=== PATIENT | female | born 1985 | race Caucasian/White ===

== ENCOUNTER 2017-07-27 14:06 | Emergency (ER) | payer SELFPAY ==
[2017-07-27 16:12] LABS: ABS Basophils 0 10^3/ul (0-0.2); ABS Eosinophils 0 10^3/ul (0-0.6); ABS Lymphocytes 0.8 10^3/ul (1.0-4.8); ABS Monocytes 0.7 10^3/ul (0-0.8); ABS Neutrophils 10.1 10^3/ul (1.5-7.7); ABS Nucleated RBC 0 10^3/ul; Eosinophil % 0.2 % (0-6); Hematocrit 37 % (35-47); Hemoglobin 12.3 g/dl (12.0-16.0); Lymphocyte % 7.2 % (25-47); Mean Corpuscular HGB Conc 34 g/dl (31-36); Mean Corpuscular Hemoglobin 28 pg (27-31); Mean Corpuscular Volume 82 fL (80-97); Mean Platelet Volume 9 um3 (7.4-10.4); Nucleated Red Blood Cells % 0; Platelet Count 160 10^3/ul (150-450); Red Blood Count 4.47 10^6/ul (4.0-5.4); Red Cell Distribution Width 15 % (10.5-15); White Blood Count 11.6 10^3/ul (3.5-10.8)
[2017-07-27 16:22] LABS: EGFR Non-African American 116.6 (>60)
[2017-07-27] MEDS ORDERED: Iohexol 300* (CONTRAST) 10 ML SDV IV ONE (16:45)
[2017-07-27] MEDS ORDERED: Ibuprofen TAB* 600 MG PO ONE (19:42)
--- NOTE | 2017-07-27 19:55 | RAD ---
INDICATION: Dorsal wrist pain, bony erosion, osteomyelitis. COMPARISON: Comparison is made with a prior x-ray study of the left hand from June 08, 2016. TECHNIQUE: Contiguous axial sections were obtained of the left wrist. Images were reconstructed in the sagittal and coronal planes. The fingers are flexed limiting the study. FINDINGS: The bones are in normal alignment. No fracture is seen. No bony erosion or periosteal reaction is seen. No fluid collection or abscess is seen. There is a small calcification measuring approximately 1 mm posterior to the lunate bone likely incidental. IMPRESSION: NO RADIOGRAPHIC EVIDENCE FOR OSTEOMYELITIS. IF THERE IS A HIGH CLINICAL SUSPICION FOR OSTEOMYELITIS CONSIDER AN MRI OF THE WRIST WITHOUT CONTRAST.
[2017-07-27] MEDS ORDERED: Potassium Chlor TAB* 20 MEQ TAB.ER PO ONE (19:57)
--- NOTE | 2017-07-27 20:03 | ED ---
Sim Danielson Natalie, scribed for Ubaldo Hylton MD on 07/27/17 at 1546 . Upper Extremity Pain - HPI Summary HPI Summary: The pt is a 31 y/o F presenting to the ED c/o left wrist pain and swelling starting two days ago and worsening since. She hasnt fallen on the arm recently , but fell on it once with no injury. The pain is rated 9/10. The pain is aggravated by movement and is alleviated by nothing. Pt additionally c/o left leg pain and decreased ability to move left fingers and wrist. Pt denies fever, nausea, vomiting, and pain in elbow. She has ganglion cyst on left wrist that hasnt given her issues in the past, but has gotten larger. She is right- handed. She smokes 1 pack of cigarettes a day, and she last used heroin more than two days ago. - History of Current Complaint Chief Complaint: EDExtremityUpper Stated Complaint: WRIST/KNEE SWOLLEN PAIN Hx Obtained From: Patient Hx Last Menstrual Period: 1 week Onset/Duration: Started Days Ago - two days ago, Still Present Timing: Constant Severity Initially: Severe Severity Currently: Severe Pain Location: Wrist - left Aggravating Factor(s): Movement Alleviating Factor(s): Nothing Associated Signs & Symptoms: Positive: Swelling, Other - left leg pain, decreased ability to move fingers in L wrist, no pain in elbow. Negative: Fever , Nausea, Vomiting Related History: Dominant Hand Right - Allergies/Home Medications Allergies/Adverse Reactions: Allergies Allergy/AdvReac Type Severity Reaction Status Date / Time Penicillins Allergy Intermediate Hives Verified 07/27/17 14:16 PMH/Surg Hx/FS Hx/Imm Hx Previously Healthy: No Endocrine/Hematology History: Denies: Hx Diabetes, Hx Thyroid Disease Cardiovascular History: Denies: Hx Hypertension Respiratory History: Denies: Hx Asthma, Hx Chronic Obstructive Pulmonary Disease (COPD) GI History: Denies: Hx Ulcer History: Denies: Hx Dialysis, Hx Renal Disease - Surgical History Surgery Procedure, Year, and Place: csection Infectious Disease History: No Infectious Disease History: Denies: Hx Clostridium Difficile, Hx Hepatitis, Hx Human Immunodeficiency Virus (HIV), Hx of Known/Suspected MRSA, Hx Shingles, Hx Tuberculosis, Hx Known/ Suspected VRE, Hx Known/Suspected VRSA, History Other Infectious Disease, Traveled Outside the [place] in Last 30 Days - Family History Known Family History: Positive: Cardiac Disease Negative: Diabetes - Social History Alcohol Use: Occasionally Hx Substance Use: Yes Substance Use Type: Reports: Heroin Substance Use Comment - Amount & Last Used: last used yesterday Hx Tobacco Use: Yes Smoking Status (MU): Heavy Every Day Tobacco Smoker Type: Cigarettes Amount Used/How Often: 1/2 ppd Review of Systems Negative: Fever Negative: Vomiting, Nausea Positive: Other - decreased movement in left fingers and wrist, left leg pain, no pain in elbow All Other Systems Reviewed And Are Negative: Yes Physical Exam - Summary Physical Exam Summary: Appearance: Well-nourished, Mild pain distress Skin: Warm, dry, Multiple round discolorations on surfaces of both arms, No erythema in extremities Eyes: Normal, Extraocular movements intact, PERRL HENT: Normal, Normal cephalic, atraumatic, Moist mucous membranes Neck: Supple, nontender Respiratory: Clear to auscultation, Normal respirations Cardiovascular: Normal, S1 and S2, No murmurs Abdomen: Soft, nontender, no distension Bowel: Present Musculoskeletal: Normal, Strength/ROM Intact Neurological: Normal, A&Ox3 Psychiatric: Normal Triage Information Reviewed: Yes Vital Signs On Initial Exam: Initial Vitals Temp Pulse Resp BP Pulse Ox 97.8 F 87 16 103/62 97 07/27/17 14:13 07/27/17 14:13 07/27/17 14:13 07/27/17 14:13 07/27/17 14:13 Vital Signs Reviewed: Yes Diagnostics - Vital Signs Vital Signs Temp Pulse Resp BP Pulse Ox 07/27/17 14:13 97.8 F 87 16 103/62 97 - Laboratory Lab Results: Lab Results 07/27/17 07/27/17 Range/Units 15:55 15:55 WBC 11.6 H (3.5-10.8) 10^3/ul RBC 4.47 (4.0-5.4) 10^6/ul Hgb 12.3 (12.0-16.0) g/dl Hct 37 (35-47) % MCV 82 (80-97) fL MCH 28 (27-31) pg MCHC 34 (31-36) g/dl RDW 15 (10.5-15) % Plt Count 160 (150-450) 10^3/ul MPV 9 (7.4-10.4) um3 Neut % (Auto) 86.5 H (38-83) % Lymph % (Auto) 7.2 L (25-47) % [place] % (Auto) 5.8 (1-9) % Eos % (Auto) 0.2 (0-6) % Baso % (Auto) 0.3 (0-2) % Absolute Neuts (auto) 10.1 H (1.5-7.7) 10^3/ul Absolute Lymphs (auto) 0.8 L (1.0-4.8) 10^3/ul Absolute Monos (auto) 0.7 (0-0.8) 10^3/ul Absolute Eos (auto) 0 (0-0.6) 10^3/ul Absolute Basos (auto) 0 (0-0.2) 10^3/ul Absolute Nucleated RBC 0 10^3/ul Nucleated RBC % 0 ESR 50 H (0-14) mm/Hr Sodium 129 L (133-145) mmol/L Potassium 3.0 L (3.5-5.0) mmol/L Chloride 96 L (101-111) mmol/L Carbon Dioxide 26 (22-32) mmol/L Anion Gap 7 (2-11) mmol/L BUN 9 (6-24) mg/dL Creatinine 0.60 (0.51-0.95) mg/dL Est GFR ( Amer) 150.0 (>60) Est GFR (Non-Af Amer) 116.6 (>60) BUN/Creatinine Ratio 15.0 (8-20) Glucose 125 H (70-100) mg/dL Calcium 8.6 (8.6-10.3) mg/dL C-Reactive Protein 266.65 H (< 5.00) mg/L Beta HCG, Quant < 0.60 mIU/mL Result Diagrams: 07/27/17 15:55 07/27/17 15:55 Lab Statement: Any lab studies that have been ordered have been reviewed, and results considered in the medical decision making process. Course/Dx - Course Assessment/Plan: feels better after meds, no evidence of osteomyelitis on CT, pt instructed to continue anti inflammatories and discontinue IV drug use and fu with PMD and orthopedist. agrees to and understnads dc isntructions. - Diagnoses Provider Diagnoses: Ganglion cyst Discharge - Discharge Plan Condition: Improved Disposition: HOME Patient Education Materials: Ganglion Cysts (ED) Referrals: Haja Hou MD [Primary Care Provider] - Roberto Carlos Hodgson MD [Medical Doctor] - Additional Instructions: PLEASE MAKE AN APPOINTMENT WITH TO BE SEEN BY AN ORTHOPEDIST WITHIN 1-2 WEEKS PLEASE RETURN IMMEDIATELY TO THE ER IF YOU HAVE ANY WORSENING OR CONCERNING SYMPTOMS PLEASE MAKE AN APPOINTMENT TO BE SEEN BY YOUR PRIMARY CARE DOCTOR WITHIN 1 WEEK The documentation as recorded by the Sim arriaza Natalie accurately reflects the service I personally performed and the decisions made by me, Ubaldo Hylton MD.
[2017-07-27 20:14] VITALS: BP 110/91
== END 2017-07-27 20:26 | disposition home or self-care (01) ==
LOC: ED 14:06
DX: M67.432 Ganglion, left wrist (principal); M25.532 Pain in left wrist
CPT/HCPCS: 36415; 80048; 84702; 85025; 85652; 86140; 99284; A9270-GY

== ENCOUNTER 2017-07-29 21:01 | Inpatient (IN) | payer SELFPAY ==
[2017-07-30] MEDS ORDERED: NS 0.9% 1000 ML*IV.FLUID IV ONE (00:04)
[2017-07-30] MEDS ORDERED: metroNIDAZOLE IV 500 MG/100ML* 500 MG/100 ML BAG IVPB ONE (00:04)
[2017-07-30] MEDS ORDERED: Ciprofloxacin 400MG IVPREMIX(* 400 MG/200 ML BAG IVPB ONE (00:04)
[2017-07-30] MEDS ORDERED: Vancomycin(*) 1,000 MG VIAL IVPB SCH (01:00)
[2017-07-30 01:55] LABS: Hematocrit 37 % (35-47); Hemoglobin 12.3 g/dl (12.0-16.0); Mean Corpuscular HGB Conc 33 g/dl (31-36); Mean Corpuscular Hemoglobin 28 pg (27-31); Mean Corpuscular Volume 83 fL (80-97); Mean Platelet Volume 9 um3 (7.4-10.4); Platelet Count 234 10^3/ul (150-450); Red Blood Count 4.46 10^6/ul (4.0-5.4); Red Cell Distribution Width 15 % (10.5-15); White Blood Count 15.4 10^3/ul (3.5-10.8)
[2017-07-30 02:07] LABS: EGFR Non-African American 123.7 (>60)
[2017-07-30 02:09] LABS: INR 1.21 (0.77-1.02)
[2017-07-30 02:23] LABS: ABS Basophils 0 10^3/ul (0-0.2); ABS Eosinophils 0 10^3/ul (0-0.6); ABS Lymphocytes 0.9 10^3/ul (1.0-4.8); ABS Neutrophils 13.4 10^3/ul (1.5-7.7); ABS Nucleated RBC 0 10^3/ul; Eosinophil % 0 % (0-6); Lymphocyte % 5.9 % (25-47); Nucleated Red Blood Cells % 0
[2017-07-30] MEDS ORDERED: Acetaminophen TAB* 325 MG PO ONE (02:52)
[2017-07-30] MEDS ORDERED: Ketorolac INJ* 30 MG/ML 1 ML VIAL IV ONE (02:52)
[2017-07-30] MEDS ORDERED: Cefepime(*) 2 GM in NS 0.9% 50 ML* 50 ML IVPB ONE (05:30)
[2017-07-30] MEDS ORDERED: Albuterol 2.5 MG/3 ML NEB.SOL* (0.083%) INH PRN (05:39)
[2017-07-30] MEDS ORDERED: Acetaminophen SUPP* 650 MG SUPP PR PRN (05:39)
[2017-07-30] MEDS ORDERED: Ondansetron INJ* 2 MG/ML VIAL IV PRN (05:40)
[2017-07-30] MEDS ORDERED: NS 0.9% 1000 ML* 1,000 ML IV SCH ×2 (05:45→13:40)
[2017-07-30] MEDS ORDERED: Vancomycin per Pharmacy* NOTE FOLLOW UP SCH (06:00)
--- NOTE | 2017-07-30 06:45 | HP ---
H&P (Free Text) History and Physical: PCP: none Date/Time: 07/30/2017 0530 CC: vision loss HPI: Mrs Flores is a 31YO female who upon my evaluation is notably encephalopathic. It took 30-45s for her to be able to say she has no brothers or sisters, but then moments later when asked where she lives stated, "with my sister". She has difficulty following requests nearly always requiring repeated requests. She has a HX active heroine abuse with last use reportedly 4 days agoe. She c/o loss of central vision and blurring of peripheral vision ~2 days ago along with severe headache. She denies history of headaches. When asked if anything else was wrong, denies. However with pointed questioning admits to F/C , sweats, painful lesions on feet. She denies chest pain, SOB, difficulty swallowing, focal weakness, or other issues. Last bowel movement ~1 day ago, normal. Denies B/U/F of urine. PMedHx heroine abuse, active Ambulatory Orders Nursing to reconcile. Ibuprofen TAB* [Motrin TAB* 600 MG] 800 mg PO 07/25/12 Cyclobenzaprine TAB* [Flexeril 10 MG TAB*] 10 mg PO TID #15 tab 06/08/16 Ibuprofen TAB* [Motrin TAB* 600 MG] 600 mg PO Q8H PRN #21 tab 06/08/16 Nitrofurantoin Monohyd Macro [Macrobid] 100 mg PO BID #14 cap 06/11/16 Allergies Penicillins Allergy (Intermediate, Verified 07/27/17 14:16) Hives PSurgHx section x1 SocHx: 1PPD cigarettes, rare alcohol, last heroine injection 4 days ago, marijuana 2-4x/week; reportedly lives with her sister; full code status FamHx: Mother: at 60 2nd pneumonia w/ esophageal CA; Father: alive in his 60s w/ "heart problems" ROS: as above, otherwise reviewed and all were negative vitals: Vital Signs Temp 36.3 C 07/30/17 06:37 Pulse 77 07/30/17 06:37 Resp 16 07/30/17 06:37 BP 105/65 07/30/17 06:30 Pulse Ox 99 07/30/17 06:37 Intake & Output 07/29/17 07/29/17 07/30/17 11:59 23:59 11:59 Intake Total 2550 Balance 2550 Weight 81.647 kg 81.7 kg Intake: IV Fluids 2550 Constitutional: NAD, normally developed, overweight white female HEENM: atraumatic; sclera/conjunctiva: anicteric/clear; fundi: difficult to visualize 2nd compliance but no lesion seen; hearing: clinically appears intact ; dentition: poor; oropharynx: clear, mucosa tacky Neck: soft tissue: no nuchal rigidity; thyroid: normal Pulmonary: clear to auscultation bilaterally, good aeration, no accessory muscle use CV: RR/RR, normal S1S2, 2/6 ejection murmur, no jugular venous distention, 1+ B DP/PT, R>L pedal edema Abdominal: soft, non-distended, non-tender, no rebound/guarding/rigidity, normoactive bowel sounds, no hepatosplenomegaly or masses, no costovertebral angle tenderness Musculoskeletal: general: grossly intact; gait: too ill to attempt ambulation Integumental: multiple tender ecchymotic nodules B feet consistent w/ septic emboli, numerous track salgado BUE Neurological cranial nerves II: visual newsome: R infero-lateral quadrant defect, otherwise appears intact III/IV/: light reflex intact with focus but periodically manifests disconjugate gaze, EOMI, R pupil 3-4mm reactive, L 2-3mm reactive VII: intact facial symmetry VIII: hearing clinically intact IX/X: symmetric palatal motion, intact gag reflex, no dysarthria XII: midline tongue protrusion, normal voice articulation motor: R handed LUE: 4/5 proximally, distally, & special education paraeducator strength RUE: 4/5 proximally, distally, & special education paraeducator strength LLE: 4/5 proximally & distally RLE: 4/5 proximally & distally coordination finger/nose: unable to comprehend request heal/goldstein: unable to comprehend request dysdiadochokinesia: unable to comprehend request sensory crude touch: intact globally DTRs biceps: 2+ B triceps: 2+ B brachioradialis: 2+ B patellar: 2+ B Achilles: 1+ B Babinski: unable to accurately perform 2nd painful septic emboli Psychiatric orientation: AA&O to PP, not TS affect: confused mood: acquiescent eye contact: poor content: unreliable memory: altered responses: markedly slowed insight: poor Testing: Lab Results 07/30/17 07/30/17 07/30/17 Range/Units 01:40 01:40 01:40 WBC (3.5-10.8) 10^3/ul RBC (4.0-5.4) 10^6/ul Hgb (12.0-16.0) g/dl Hct (35-47) % MCV (80-97) fL MCH (27-31) pg MCHC (31-36) g/dl RDW (10.5-15) % Plt Count (150-450) 10^3/ul MPV (7.4-10.4) um3 Neut % (Auto) (38-83) % Lymph % (Auto) (25-47) % [place] % (Auto) (1-9) % Eos % (Auto) (0-6) % Baso % (Auto) (0-2) % Absolute Neuts (auto) (1.5-7.7) 10^3/ul Absolute Lymphs (auto) (1.0-4.8) 10^3/ul Absolute Monos (auto) (0-0.8) 10^3/ul Absolute Eos (auto) (0-0.6) 10^3/ul Absolute Basos (auto) (0-0.2) 10^3/ul Absolute Nucleated RBC 10^3/ul Nucleated RBC % INR (Anticoag Therapy) 1.21 H (0.77-1.02) APTT 27.7 (26.0-36.3) seconds Sodium 125 L (133-145) mmol/L Potassium 3.2 L (3.5-5.0) mmol/L Chloride 90 L (101-111) mmol/L Carbon Dioxide 25 (22-32) mmol/L Anion Gap 10 (2-11) mmol/L BUN 6 (6-24) mg/dL Creatinine 0.57 (0.51-0.95) mg/dL Est GFR ( Amer) 159.1 (>60) Est GFR (Non-Af Amer) 123.7 (>60) BUN/Creatinine Ratio 10.5 (8-20) Glucose 104 H (70-100) mg/dL Lactic Acid (0.5-2.0) mmol/L Calcium 8.8 (8.6-10.3) mg/dL Total Bilirubin 1.30 H (0.2-1.0) mg/dL AST 18 (13-39) U/L ALT 17 (7-52) U/L Alkaline Phosphatase 120 H (34-104) U/L Troponin I 0.04 H* (<0.04) ng/mL C-Reactive Protein 305.22 H (< 5.00) mg/L Total Protein 7.1 (6.4-8.9) g/dL Albumin 3.2 (3.2-5.2) g/dL Globulin 3.9 (2-4) g/dL Albumin/Globulin Ratio 0.8 L (1-3) Procalcitonin (<0.6) ng/mL Urine Color Urine Appearance Urine pH (5-9) Ur Specific [place] (1.010-1.030) Urine Protein (Negative) Urine Ketones (Negative) Urine Blood (Negative) Urine Nitrate (Negative) Urine Bilirubin (Negative) Urine Urobilinogen (Negative) Ur Leukocyte Esterase (Negative) Urine WBC (Auto) (Absent) Urine RBC (Auto) (Absent) Urine Bacteria (Absent) Urine Glucose (Negative) Salicylates < 2.50 (<30) mg/dL Acetaminophen < 15 mcg/mL Serum Alcohol < 10 (<10) mg/dL Influenza A (Rapid) (Negative) Influenza B (Rapid) (Negative) 07/30/17 07/30/17 07/30/17 Range/Units 01:40 01:40 01:40 WBC 15.4 H (3.5-10.8) 10^3/ul RBC 4.46 (4.0-5.4) 10^6/ul Hgb 12.3 (12.0-16.0) g/dl Hct 37 (35-47) % MCV 83 (80-97) fL MCH 28 (27-31) pg MCHC 33 (31-36) g/dl RDW 15 (10.5-15) % Plt Count 234 (150-450) 10^3/ul MPV 9 (7.4-10.4) um3 Neut % (Auto) 87.0 H (38-83) % Lymph % (Auto) 5.9 L (25-47) % [place] % (Auto) 6.8 (1-9) % Eos % (Auto) 0 (0-6) % Baso % (Auto) 0.3 (0-2) % Absolute Neuts (auto) 13.4 H (1.5-7.7) 10^3/ul Absolute Lymphs (auto) 0.9 L (1.0-4.8) 10^3/ul Absolute Monos (auto) 1.0 H (0-0.8) 10^3/ul Absolute Eos (auto) 0 (0-0.6) 10^3/ul Absolute Basos (auto) 0 (0-0.2) 10^3/ul Absolute Nucleated RBC 0 10^3/ul Nucleated RBC % 0 INR (Anticoag Therapy) (0.77-1.02) APTT (26.0-36.3) seconds Sodium (133-145) mmol/L Potassium (3.5-5.0) mmol/L Chloride (101-111) mmol/L Carbon Dioxide (22-32) mmol/L Anion Gap (2-11) mmol/L BUN (6-24) mg/dL Creatinine (0.51-0.95) mg/dL Est GFR ( Amer) (>60) Est GFR (Non-Af Amer) (>60) BUN/Creatinine Ratio (8-20) Glucose (70-100) mg/dL Lactic Acid 1.0 (0.5-2.0) mmol/L Calcium (8.6-10.3) mg/dL Total Bilirubin (0.2-1.0) mg/dL AST (13-39) U/L ALT (7-52) U/L Alkaline Phosphatase (34-104) U/L Troponin I (<0.04) ng/mL C-Reactive Protein (< 5.00) mg/L Total Protein (6.4-8.9) g/dL Albumin (3.2-5.2) g/dL Globulin (2-4) g/dL Albumin/Globulin Ratio (1-3) Procalcitonin 0.9 H (<0.6) ng/mL Urine Color Urine Appearance Urine pH (5-9) Ur Specific [place] (1.010-1.030) Urine Protein (Negative) Urine Ketones (Negative) Urine Blood (Negative) Urine Nitrate (Negative) Urine Bilirubin (Negative) Urine Urobilinogen (Negative) Ur Leukocyte Esterase (Negative) Urine WBC (Auto) (Absent) Urine RBC (Auto) (Absent) Urine Bacteria (Absent) Urine Glucose (Negative) Salicylates (<30) mg/dL Acetaminophen mcg/mL Serum Alcohol (<10) mg/dL Influenza A (Rapid) (Negative) Influenza B (Rapid) (Negative) 07/30/17 07/30/17 Range/Units 02:34 06:17 WBC (3.5-10.8) 10^3/ul RBC (4.0-5.4) 10^6/ul Hgb (12.0-16.0) g/dl Hct (35-47) % MCV (80-97) fL MCH (27-31) pg MCHC (31-36) g/dl RDW (10.5-15) % Plt Count (150-450) 10^3/ul MPV (7.4-10.4) um3 Neut % (Auto) (38-83) % Lymph % (Auto) (25-47) % [place] % (Auto) (1-9) % Eos % (Auto) (0-6) % Baso % (Auto) (0-2) % Absolute Neuts (auto) (1.5-7.7) 10^3/ul Absolute Lymphs (auto) (1.0-4.8) 10^3/ul Absolute Monos (auto) (0-0.8) 10^3/ul Absolute Eos (auto) (0-0.6) 10^3/ul Absolute Basos (auto) (0-0.2) 10^3/ul Absolute Nucleated RBC 10^3/ul Nucleated RBC % INR (Anticoag Therapy) (0.77-1.02) APTT (26.0-36.3) seconds Sodium (133-145) mmol/L Potassium (3.5-5.0) mmol/L Chloride (101-111) mmol/L Carbon Dioxide (22-32) mmol/L Anion Gap (2-11) mmol/L BUN (6-24) mg/dL Creatinine (0.51-0.95) mg/dL Est GFR ( Amer) (>60) Est GFR (Non-Af Amer) (>60) BUN/Creatinine Ratio (8-20) Glucose (70-100) mg/dL Lactic Acid (0.5-2.0) mmol/L Calcium (8.6-10.3) mg/dL Total Bilirubin (0.2-1.0) mg/dL AST (13-39) U/L ALT (7-52) U/L Alkaline Phosphatase (34-104) U/L Troponin I (<0.04) ng/mL C-Reactive Protein (< 5.00) mg/L Total Protein (6.4-8.9) g/dL Albumin (3.2-5.2) g/dL Globulin (2-4) g/dL Albumin/Globulin Ratio (1-3) Procalcitonin (<0.6) ng/mL Urine Color Yellow Urine Appearance Clear Urine pH 6.0 (5-9) Ur Specific [place] 1.004 L (1.010-1.030) Urine Protein Negative (Negative) Urine Ketones 1+ H (Negative) Urine Blood 2+ H (Negative) Urine Nitrate Negative (Negative) Urine Bilirubin Negative (Negative) Urine Urobilinogen Negative (Negative) Ur Leukocyte Esterase 1+ H (Negative) Urine WBC (Auto) Trace(0-5/hpf) (Absent) Urine RBC (Auto) 1+(3-5/hpf) H (Absent) Urine Bacteria Absent (Absent) Urine Glucose Negative (Negative) Salicylates (<30) mg/dL Acetaminophen mcg/mL Serum Alcohol (<10) mg/dL Influenza A (Rapid) Negative (Negative) Influenza B (Rapid) Negative (Negative) ECG, personally reviewed: sinus tachycardia rate 102, no ischemia CXR, personally reviewed: no acute process CT brain WO, personally reviewed: Shayy read: negative brain; However to my eye there are multiple lesions suspicious of septic emboli in this clinical context, most prominent lesion on standard image 22 of 32 high occipital. Impression: 31F active heroine abuse presenting with visual defect, severe headache, & encephalopathy with lesions to B feet consistent with septic emboli 2nd presumed endocarditis and a non-contrast CT brain WO suspicious for septic cerebral emboli DIAGNOSIS & PLAN Primary bacterial endocarditis w/ septic peripheral emboli & very high suspicion of multiple septic cerebral emboli : ICU admission : IVFs : IV vancomycin/ciprofloxacin/metronidazole given in ED; will continue with vancomycin/cefepime : MRI brain W in AM : ECHO in AM : case reviewed w/ M MD [facility] care who agreed : consider ID consult in AM : blood CXs : paredes to gravity for monitoring renal function, fluid status, prevention of skin breakdown : supplemental oxygen : supportive care Secondary heroine abuse, active : high school social studies tutor consult Admission Rational: inpatient for critically-ill young woman at very high risk of mortality DVTp: SCDs, avoid anticoagulation until question of cerebral septic emboli further evaluated Code Status: full
[2017-07-30 06:56] LABS: Urine Appearance Clear; Urine Blood 2+ (Negative); Urine Color Yellow; Urine Ketones 1+ (Negative); Urine Protein Negative (Negative); Urine Specific Gravity 1.004 (1.010-1.030); Urine Urobilinogen Negative (Negative)
[2017-07-30 07:06] LABS: EGFR Non-African American 166.8 (>60)
[2017-07-30] MEDS ORDERED: Vancomycin(*) 1,250 MG IV x ONCE IVPB ONE ×2 (07:30)
--- NOTE | 2017-07-30 07:43 | ED ---
Sim Danielson Natalie, scribed for Silvano Ingram MD on 07/30/17 at 0018 . Throat Pain/Nasal Congestion - HPI Summary HPI Summary: The pt is a 31 y/o F presenting to the ED c/o blind spot in right eye starting four days ago. The pt states she hasnt been feeling well. The pain is rated as 7/10. Pt additionally c/o fever, headache, light sensitivity, sore throat, erythema and decreased ROM in right foot. Pt denies CP, SOB, and abd pain. She states that she last used IV drugs a year ago. - History of Current Complaint Chief Complaint: EDFever Time Seen by Provider: 07/29/17 23:47 Hx Obtained From: Patient Onset/Duration: Sudden Onset, Lasting Days, Still Present Severity: Moderate - Allergies/Home Medications Allergies/Adverse Reactions: Allergies Allergy/AdvReac Type Severity Reaction Status Date / Time Penicillins Allergy Intermediate Hives Verified 07/27/17 14:16 Home Medications: Home Medications NK [No Home Medications Reported] 07/30/17 [History Confirmed 07/30/17] PMH/Surg Hx/FS Hx/Imm Hx Previously Healthy: No Endocrine/Hematology History: Denies: Hx Diabetes, Hx Thyroid Disease Cardiovascular History: Denies: Hx Hypertension Respiratory History: Denies: Hx Asthma, Hx Chronic Obstructive Pulmonary Disease (COPD) GI History: Denies: Hx Ulcer History: Denies: Hx Dialysis, Hx Renal Disease - Surgical History Surgery Procedure, Year, and Place: csection Infectious Disease History: No Infectious Disease History: Denies: Hx Clostridium Difficile, Hx Hepatitis, Hx Human Immunodeficiency Virus (HIV), Hx of Known/Suspected MRSA, Hx Shingles, Hx Tuberculosis, Hx Known/ Suspected VRE, Hx Known/Suspected VRSA, History Other Infectious Disease, Traveled Outside the [place] in Last 30 Days - Family History Known Family History: Positive: Cardiac Disease Negative: Diabetes - Social History Alcohol Use: Occasionally Hx Substance Use: Yes Substance Use Type: Reports: Heroin Substance Use Comment - Amount & Last Used: last used yesterday Hx Tobacco Use: Yes Smoking Status (MU): Current Every Day Smoker Type: Cigarettes Amount Used/How Often: 1/2 ppd Review of Systems Positive: Fever Positive: Other - blind spot in right eye, light sensitivity Positive: Sore Throat Negative: Chest Pain Negative: Shortness Of Breath Negative: Abdominal Pain Positive: Decreased ROM - and erythema in right foot, Other Positive: Headache All Other Systems Reviewed And Are Negative: Yes Physical Exam Triage Information Reviewed: Yes Vital Signs On Initial Exam: Initial Vitals Temp Pulse Resp BP Pulse Ox 101.3 F 125 18 133/68 100 07/29/17 21:05 07/29/17 21:05 07/29/17 21:05 07/29/17 21:05 07/29/17 21:05 Vital Signs Reviewed: Yes Appearance: Positive: Ill-Appearing - Mildly to moderately Skin: Positive: Warm, Skin Color Reflects Adequate Perfusion, Dry Head/Face: Positive: Normal Head/Face Inspection Eyes: Positive: Other: - Right eye has loss of peripheral vision to right side, pt reports she cannot see out of left eye unless she looks directly in front of her ENT: Positive: Normal ENT inspection Neck: Positive: Supple, Nontender Respiratory/Lung Sounds: Positive: Clear to Auscultation Cardiovascular: Positive: Tachycardia Abdomen Description: Positive: Nontender, Soft Bowel Sounds: Positive: Present Musculoskeletal: Positive: Strength/ROM Intact, Other - erythema in right foot Neurological: Positive: Normal, Sensory/Motor Intact, Alert, Oriented to Person Place, Time, Other - no focal neuro deficit Psychiatric: Positive: Affect/Mood Appropriate - [place]heen Coma Scale Coma Scale Total: 15 Diagnostics - Vital Signs Vital Signs Temp Pulse Resp BP Pulse Ox 07/29/17 21:05 101.3 F 125 18 133/68 100 - Laboratory Lab Results: Lab Results 07/30/17 07/30/17 07/30/17 Range/Units 01:40 01:40 01:40 WBC (3.5-10.8) 10^3/ul RBC (4.0-5.4) 10^6/ul Hgb (12.0-16.0) g/dl Hct (35-47) % MCV (80-97) fL MCH (27-31) pg MCHC (31-36) g/dl RDW (10.5-15) % Plt Count (150-450) 10^3/ul MPV (7.4-10.4) um3 Neut % (Auto) (38-83) % Lymph % (Auto) (25-47) % [place] % (Auto) (1-9) % Eos % (Auto) (0-6) % Baso % (Auto) (0-2) % Absolute Neuts (auto) (1.5-7.7) 10^3/ul Absolute Lymphs (auto) (1.0-4.8) 10^3/ul Absolute Monos (auto) (0-0.8) 10^3/ul Absolute Eos (auto) (0-0.6) 10^3/ul Absolute Basos (auto) (0-0.2) 10^3/ul Absolute Nucleated RBC 10^3/ul Nucleated RBC % INR (Anticoag Therapy) 1.21 H (0.77-1.02) APTT 27.7 (26.0-36.3) seconds Sodium 125 L (133-145) mmol/L Potassium 3.2 L (3.5-5.0) mmol/L Chloride 90 L (101-111) mmol/L Carbon Dioxide 25 (22-32) mmol/L Anion Gap 10 (2-11) mmol/L BUN 6 (6-24) mg/dL Creatinine 0.57 (0.51-0.95) mg/dL Est GFR ( Amer) 159.1 (>60) Est GFR (Non-Af Amer) 123.7 (>60) BUN/Creatinine Ratio 10.5 (8-20) Glucose 104 H (70-100) mg/dL Lactic Acid (0.5-2.0) mmol/L Calcium 8.8 (8.6-10.3) mg/dL Total Bilirubin 1.30 H (0.2-1.0) mg/dL AST 18 (13-39) U/L ALT 17 (7-52) U/L Alkaline Phosphatase 120 H (34-104) U/L Troponin I 0.04 H* (<0.04) ng/mL C-Reactive Protein 305.22 H (< 5.00) mg/L Total Protein 7.1 (6.4-8.9) g/dL Albumin 3.2 (3.2-5.2) g/dL Globulin 3.9 (2-4) g/dL Albumin/Globulin Ratio 0.8 L (1-3) Procalcitonin (<0.6) ng/mL Salicylates < 2.50 (<30) mg/dL Acetaminophen < 15 mcg/mL Serum Alcohol < 10 (<10) mg/dL Influenza A (Rapid) (Negative) Influenza B (Rapid) (Negative) 07/30/17 07/30/17 07/30/17 Range/Units 01:40 01:40 01:40 WBC 15.4 H (3.5-10.8) 10^3/ul RBC 4.46 (4.0-5.4) 10^6/ul Hgb 12.3 (12.0-16.0) g/dl Hct 37 (35-47) % MCV 83 (80-97) fL MCH 28 (27-31) pg MCHC 33 (31-36) g/dl RDW 15 (10.5-15) % Plt Count 234 (150-450) 10^3/ul MPV 9 (7.4-10.4) um3 Neut % (Auto) 87.0 H (38-83) % Lymph % (Auto) 5.9 L (25-47) % [place] % (Auto) 6.8 (1-9) % Eos % (Auto) 0 (0-6) % Baso % (Auto) 0.3 (0-2) % Absolute Neuts (auto) 13.4 H (1.5-7.7) 10^3/ul Absolute Lymphs (auto) 0.9 L (1.0-4.8) 10^3/ul Absolute Monos (auto) 1.0 H (0-0.8) 10^3/ul Absolute Eos (auto) 0 (0-0.6) 10^3/ul Absolute Basos (auto) 0 (0-0.2) 10^3/ul Absolute Nucleated RBC 0 10^3/ul Nucleated RBC % 0 INR (Anticoag Therapy) (0.77-1.02) APTT (26.0-36.3) seconds Sodium (133-145) mmol/L Potassium (3.5-5.0) mmol/L Chloride (101-111) mmol/L Carbon Dioxide (22-32) mmol/L Anion Gap (2-11) mmol/L BUN (6-24) mg/dL Creatinine (0.51-0.95) mg/dL Est GFR ( Amer) (>60) Est GFR (Non-Af Amer) (>60) BUN/Creatinine Ratio (8-20) Glucose (70-100) mg/dL Lactic Acid 1.0 (0.5-2.0) mmol/L Calcium (8.6-10.3) mg/dL Total Bilirubin (0.2-1.0) mg/dL AST (13-39) U/L ALT (7-52) U/L Alkaline Phosphatase (34-104) U/L Troponin I (<0.04) ng/mL C-Reactive Protein (< 5.00) mg/L Total Protein (6.4-8.9) g/dL Albumin (3.2-5.2) g/dL Globulin (2-4) g/dL Albumin/Globulin Ratio (1-3) Procalcitonin 0.9 H (<0.6) ng/mL Salicylates (<30) mg/dL Acetaminophen mcg/mL Serum Alcohol (<10) mg/dL Influenza A (Rapid) (Negative) Influenza B (Rapid) (Negative) 07/30/17 Range/Units 02:34 WBC (3.5-10.8) 10^3/ul RBC (4.0-5.4) 10^6/ul Hgb (12.0-16.0) g/dl Hct (35-47) % MCV (80-97) fL MCH (27-31) pg MCHC (31-36) g/dl RDW (10.5-15) % Plt Count (150-450) 10^3/ul MPV (7.4-10.4) um3 Neut % (Auto) (38-83) % Lymph % (Auto) (25-47) % [place] % (Auto) (1-9) % Eos % (Auto) (0-6) % Baso % (Auto) (0-2) % Absolute Neuts (auto) (1.5-7.7) 10^3/ul Absolute Lymphs (auto) (1.0-4.8) 10^3/ul Absolute Monos (auto) (0-0.8) 10^3/ul Absolute Eos (auto) (0-0.6) 10^3/ul Absolute Basos (auto) (0-0.2) 10^3/ul Absolute Nucleated RBC 10^3/ul Nucleated RBC % INR (Anticoag Therapy) (0.77-1.02) APTT (26.0-36.3) seconds Sodium (133-145) mmol/L Potassium (3.5-5.0) mmol/L Chloride (101-111) mmol/L Carbon Dioxide (22-32) mmol/L Anion Gap (2-11) mmol/L BUN (6-24) mg/dL Creatinine (0.51-0.95) mg/dL Est GFR ( Amer) (>60) Est GFR (Non-Af Amer) (>60) BUN/Creatinine Ratio (8-20) Glucose (70-100) mg/dL Lactic Acid (0.5-2.0) mmol/L Calcium (8.6-10.3) mg/dL Total Bilirubin (0.2-1.0) mg/dL AST (13-39) U/L ALT (7-52) U/L Alkaline Phosphatase (34-104) U/L Troponin I (<0.04) ng/mL C-Reactive Protein (< 5.00) mg/L Total Protein (6.4-8.9) g/dL Albumin (3.2-5.2) g/dL Globulin (2-4) g/dL Albumin/Globulin Ratio (1-3) Procalcitonin (<0.6) ng/mL Salicylates (<30) mg/dL Acetaminophen mcg/mL Serum Alcohol (<10) mg/dL Influenza A (Rapid) Negative (Negative) Influenza B (Rapid) Negative (Negative) Result Diagrams: 07/30/17 01:40 07/30/17 06:35 Lab Statement: Any lab studies that have been ordered have been reviewed, and results considered in the medical decision making process. - CT Brain CT CT Interpretation: No Acute Changes - Normal exam. ED physician has reviewed this report. - EKG 00:35 Cardiac Rate: Tachycardia EKG Rhythm: Sinus Tachycardia - 102 BPM EKG Interpretation: Nml ST. No ectopy. EENT Course/Dx - Course Course Of Treatment: Medications reviewed. Allergies noted. MOST PROBABLE CAUSE OF SEPSIS IS ENDOCARDITIS. NECK SUPPLE AND PATIENT DENIES NECK AND BACK PAIN; MENINGITIS IS UNLIKELY BUT, NOT RULED OUT. I DISCUSSED HAVING A LUMBAR PUNCTURE WITH THE PATIENT, SHE DECLINED A LUMBAR PUNCTURE. ADMIT HOSPITALIST. - Diagnoses Provider Diagnoses: Sepsis - Critical Care Time Critical Care Time: 30-74 min Discharge - Discharge Plan Condition: Guarded Disposition: ADMITTED TO [facility] The documentation as recorded by the Sim arriaza Natalie accurately reflects the service I personally performed and the decisions made by me, Silvano Ingram MD.
--- NOTE | 2017-07-30 07:48 | RAD ---
INDICATION: Fever COMPARISON: Chest x-ray dated June 08, 2016 TECHNIQUE: Single AP portable view of the chest was obtained. FINDINGS: Image quality is compromised due to the relative inferiority of a portable chest x-ray. The heart and mediastinum exhibit normal size and contour. The lungs are grossly clear. There is no evidence of a large pleural effusion. Visualized bones are normal for the patient's age. IMPRESSION: No radiographic evidence for acute cardiopulmonary abnormality on this portable chest x-ray.
--- NOTE | 2017-07-30 07:50 | RAD ---
INDICATION: Fever, headache and loss of peripheral vision COMPARISON: CT of the brain June 08, 2016 TECHNIQUE: Contiguous axial sections of the brain were obtained from the skull base to the vertex without contrast. FINDINGS: The ventricles, cisterns and sulci are within normal limits. The escobar-white matter differentiation is adequately maintained and there is no sulcal effacement. No significant focal abnormality or mass effect is present. Coarse calcification along the midline tentorium cerebelli is incidentally noted unchanged from the prior CT examination. There is no evidence for intracranial hemorrhage. No significant focal osseous abnormality is present. The visualized portion of the paranasal sinuses appear clear. The mastoid air cells are well aerated bilaterally. IMPRESSION: Normal CT of the brain.
[2017-07-30] MEDS: Pantoprazole IV* 40 MG IV SCH (09:44)
[2017-07-30] MEDS: HYDROmorphone INJ* 2 MG/ML CARPUJECT SYRINGE IV SLOW PU PRN ×4 (10:54→22:07)
[2017-07-30] MEDS ORDERED: Potassium Chloride LIQUID* 20 MEQ PACKET PO ONE (12:03)
[2017-07-30] MEDS ORDERED: Lidocaine 2% PF * 5 ML VIAL ONE (12:35)
[2017-07-30 13:28] LABS: Hematocrit 30 % (35-47); Hemoglobin 10.2 g/dl (12.0-16.0); Mean Corpuscular HGB Conc 34 g/dl (31-36); Mean Corpuscular Hemoglobin 28 pg (27-31); Mean Corpuscular Volume 82 fL (80-97); Red Cell Distribution Width 15 % (10.5-15); White Blood Count 7.8 10^3/ul (3.5-10.8)
--- NOTE | 2017-07-30 13:55 | CONSULT ---
Consult Consult: Consultation Note Critical Care Requesting Physician: Dr Nance Reason for consult: endocarditis, sepsis Limitations in history/physical: none Date of consult: 07/30/2017 HPI: 31y F with no sig pmhx; known heroin use, active. Comes to ER for change in mental status. She states she use to use it before and decreased use of heroine but days ago developed increasing pain in back and headaches. She started to use heroin IV again 4 days back. She comes in for loss of central vision and blurring of peripheral vision ~2 days with headache. She has had sweats and fever/chills. She has pain when walking on her feet. She has increased diarrhea but more so loss of control of her bowels. She denies cp/sob/ n/v. no numbness. In ICU now she has loss of control of her bowels at times. In ER, was not febrile, started on IV abx for possible endocarditis. CT brain ordered with negative reading initially. Repeat read positive for left occipital lobe hypoattenuation lesion 4mm. ROS: negative except for pertinent positives mentioned above. PMHx: none PSHx: , x1 Family History: mother at 60 due to pneumonia with esophageal cancer; father alive in 60s with cardiac disease. Social History: Alcohol-rare use, Smoking-1 ppd cigarettes, Drug use- marijuana 2-4x/week and now active heroine IV use Allergies: Allergies Allergy/AdvReac Type Severity Reaction Status Date / Time Penicillins Allergy Intermediate Hives Verified 07/27/17 14:16 Home Medications: NK [No Home Medications Reported] 07/30/17 [History Confirmed 07/30/17] Tele: sinus tachy Vitals: Vital Signs Temp 102.6 F 07/30/17 13:04 Pulse 105 07/30/17 13:04 Resp 20 07/30/17 13:12 BP 108/57 07/30/17 12:00 Pulse Ox 98 07/30/17 13:04 Intake & Output 07/29/17 07/30/17 07/30/17 18:59 06:59 18:59 Intake Total 2550 150 Balance 2550 150 Weight 180 lb 1.883 oz 170 lb Intake: IV Fluids 2550 IVPB 150 ns 150 O2/Vent: RA Infusions: NS 125cc/hr Current Medications: Acetaminophen (Tylenol Supp*) 650 mg UT Q6H PRN PRN Reason: FEVER/PAIN Albuterol (Ventolin 2.5 Mg/3 Ml Neb.Serena*) 2.5 mg INH Q2H PRN PRN Reason: SOB/WHEEZING Heparin Sodium (Porcine) (Heparin Vial(*)) 5,000 units SUBCUT Q8HR [facility] Hydromorphone HCl (Dilaudid Inj*) 0.5 mg IV SLOW PU Q2H PRN PRN Reason: PAIN Last Admin: 07/30/17 13:12 Dose: 0.5 mg Cefepime HCl (Maxipime 2 Gm In Dextrose Duplex (*)) 2 gm in 50 mls @ 100 mls/ hr IV Q12H [facility] Vancomycin HCl 1,000 mg/ (Sodium Chloride) 250 mls @ 166.667 mls/hr IVPB Q6H [facility] Sodium Chloride (Ns 0.9% 1000 Ml*) 1,000 mls @ 100 mls/hr IV PER RATE [facility] Ondansetron HCl (Zofran Inj*) 4 mg IV Q6H PRN PRN Reason: NAUSEA Pantoprazole Sodium (Protonix Iv*) 40 mg IV DAILY [facility] Last Admin: 07/30/17 09:44 Dose: 40 mg Pharmacy Consult (Vancomycin Per Pharmacy*) 1 note FOLLOW UP .VANC PER PHARMACY [facility] Pharmacy Profile Note (Vancomycin Trough Check) 1 note FOLLOW UP 829 ONE Stop: 07/31/17 08:31 Physical Exam: General: awake, alert, pain at times from headache and back pain, no diaphoresis Head: normocephalic, atraumatic HEENT: no pallor, no icterus, moist mucous membranes Neck: soft, supple, no jvd, no stridor CVS: tachycardic, normal rhythm, no murmur Resp: bilateral air entry, no rhales, no wheeze, no rhonchi, no acc muscle use Abdomen: soft, nontender, nondistended, bowel sounds present Ext: pulses+, warm, no edema Skin: noted areas of nodules and tenderness at distal tips of hands and feet as well we palms/soles of feet and legs/arms, tender to touch; no macular lesions; no edema, pulses+; track salgado in arms noted. Neuro: awake, alert, orientedx3; moving all ext equally, no numbness. There is some right sided visual field deficit noted Labs: Laboratory Results - last 24 hr 07/30/17 07/30/17 07/30/17 01:40 01:40 01:40 WBC RBC Hgb Hct MCV MCH MCHC RDW Plt Count MPV Neut % (Auto) Lymph % (Auto) [place] % (Auto) Eos % (Auto) Baso % (Auto) Absolute Neuts (auto) Absolute Lymphs (auto) Absolute Monos (auto) Absolute Eos (auto) Absolute Basos (auto) Absolute Nucleated RBC Nucleated RBC % INR (Anticoag Therapy) 1.21 H APTT 27.7 Sodium 125 L Potassium 3.2 L Chloride 90 L Carbon Dioxide 25 Anion Gap 10 BUN 6 Creatinine 0.57 Est GFR ( Amer) 159.1 Est GFR (Non-Af Amer) 123.7 BUN/Creatinine Ratio 10.5 Glucose 104 H Lactic Acid Calcium 8.8 Total Bilirubin 1.30 H AST 18 ALT 17 Alkaline Phosphatase 120 H Troponin I 0.04 H* C-Reactive Protein 305.22 H Total Protein 7.1 Albumin 3.2 Globulin 3.9 Albumin/Globulin Ratio 0.8 L Procalcitonin Beta HCG, Quant Urine Color Urine Appearance Urine pH Ur Specific [place] Urine Protein Urine Ketones Urine Blood Urine Nitrate Urine Bilirubin Urine Urobilinogen Ur Leukocyte Esterase Urine WBC (Auto) Urine RBC (Auto) Urine Bacteria Urine Glucose Salicylates < 2.50 Urine Opiates Screen Acetaminophen < 15 Ur Barbiturates Screen Ur Phencyclidine Scrn Ur Amphetamines Screen U Benzodiazepines Scrn Urine Cocaine Screen U Cannabinoids Screen Serum Alcohol < 10 Influenza A (Rapid) Influenza B (Rapid) 07/30/17 07/30/17 07/30/17 01:40 01:40 01:40 WBC 15.4 H RBC 4.46 Hgb 12.3 Hct 37 MCV 83 MCH 28 MCHC 33 RDW 15 Plt Count 234 MPV 9 Neut % (Auto) 87.0 H Lymph % (Auto) 5.9 L [place] % (Auto) 6.8 Eos % (Auto) 0 Baso % (Auto) 0.3 Absolute Neuts (auto) 13.4 H Absolute Lymphs (auto) 0.9 L Absolute Monos (auto) 1.0 H Absolute Eos (auto) 0 Absolute Basos (auto) 0 Absolute Nucleated RBC 0 Nucleated RBC % 0 INR (Anticoag Therapy) APTT Sodium Potassium Chloride Carbon Dioxide Anion Gap BUN Creatinine Est GFR ( Amer) Est GFR (Non-Af Amer) BUN/Creatinine Ratio Glucose Lactic Acid 1.0 Calcium Total Bilirubin AST ALT Alkaline Phosphatase Troponin I C-Reactive Protein Total Protein Albumin Globulin Albumin/Globulin Ratio Procalcitonin 0.9 H Beta HCG, Quant Urine Color Urine Appearance Urine pH Ur Specific [place] Urine Protein Urine Ketones Urine Blood Urine Nitrate Urine Bilirubin Urine Urobilinogen Ur Leukocyte Esterase Urine WBC (Auto) Urine RBC (Auto) Urine Bacteria Urine Glucose Salicylates Urine Opiates Screen Acetaminophen Ur Barbiturates Screen Ur Phencyclidine Scrn Ur Amphetamines Screen U Benzodiazepines Scrn Urine Cocaine Screen U Cannabinoids Screen Serum Alcohol Influenza A (Rapid) Influenza B (Rapid) 07/30/17 07/30/17 07/30/17 02:34 06:17 06:17 WBC RBC Hgb Hct MCV MCH MCHC RDW Plt Count MPV Neut % (Auto) Lymph % (Auto) [place] % (Auto) Eos % (Auto) Baso % (Auto) Absolute Neuts (auto) Absolute Lymphs (auto) Absolute Monos (auto) Absolute Eos (auto) Absolute Basos (auto) Absolute Nucleated RBC Nucleated RBC % INR (Anticoag Therapy) APTT Sodium Potassium Chloride Carbon Dioxide Anion Gap BUN Creatinine Est GFR ( Amer) Est GFR (Non-Af Amer) BUN/Creatinine Ratio Glucose Lactic Acid Calcium Total Bilirubin AST ALT Alkaline Phosphatase Troponin I C-Reactive Protein Total Protein Albumin Globulin Albumin/Globulin Ratio Procalcitonin Beta HCG, Quant Urine Color Yellow Urine Appearance Clear Urine pH 6.0 Ur Specific [place] 1.004 L Urine Protein Negative Urine Ketones 1+ H Urine Blood 2+ H Urine Nitrate Negative Urine Bilirubin Negative Urine Urobilinogen Negative Ur Leukocyte Esterase 1+ H Urine WBC (Auto) Trace(0-5/hpf) Urine RBC (Auto) 1+(3-5/hpf) H Urine Bacteria Absent Urine Glucose Negative Salicylates Urine Opiates Screen Presumptive positive H Acetaminophen Ur Barbiturates Screen None detected Ur Phencyclidine Scrn None detected Ur Amphetamines Screen None detected U Benzodiazepines Scrn None detected Urine Cocaine Screen None detected U Cannabinoids Screen Presumptive positive H Serum Alcohol Influenza A (Rapid) Negative Influenza B (Rapid) Negative 07/30/17 07/30/17 07/30/17 06:35 13:00 13:00 WBC 7.8 RBC 3.70 L Hgb 10.2 L Hct 30 L MCV 82 MCH 28 MCHC 34 RDW 15 Plt Count MPV Neut % (Auto) Lymph % (Auto) [place] % (Auto) Eos % (Auto) Baso % (Auto) Absolute Neuts (auto) Absolute Lymphs (auto) Absolute Monos (auto) Absolute Eos (auto) Absolute Basos (auto) Absolute Nucleated RBC Nucleated RBC % INR (Anticoag Therapy) APTT Sodium 128 L Potassium 3.1 L Chloride 98 L Carbon Dioxide 19 L Anion Gap 11 BUN 7 Creatinine 0.44 L Est GFR ( Amer) 214.5 Est GFR (Non-Af Amer) 166.8 BUN/Creatinine Ratio 15.9 Glucose 118 H Lactic Acid 0.9 Calcium 8.1 L Total Bilirubin AST ALT Alkaline Phosphatase Troponin I 0.07 H* C-Reactive Protein Total Protein Albumin Globulin Albumin/Globulin Ratio Procalcitonin Beta HCG, Quant 2.01 Urine Color Urine Appearance Urine pH Ur Specific [place] Urine Protein Urine Ketones Urine Blood Urine Nitrate Urine Bilirubin Urine Urobilinogen Ur Leukocyte Esterase Urine WBC (Auto) Urine RBC (Auto) Urine Bacteria Urine Glucose Salicylates Urine Opiates Screen Acetaminophen Ur Barbiturates Screen Ur Phencyclidine Scrn Ur Amphetamines Screen U Benzodiazepines Scrn Urine Cocaine Screen U Cannabinoids Screen Serum Alcohol Influenza A (Rapid) Influenza B (Rapid) Imaging: CT brain 07/30 noted left occipital 4mm hypoattentuation with some edema+ Assessment: 31y F with no sig pmhx; known heroin use, active. Comes to ER for change in mental status. She states she use to use it before and decreased use of heroine but days ago developed increasing pain in back and headaches. She started to use heroin IV again 4 days back. She comes in for loss of central vision and blurring of peripheral vision ~2 days with headache. She has had sweats and fever/chills. She has pain when walking on her feet. She has increased diarrhea but more so loss of control of her bowels. -Left occipital lobe lesion, possible septic/embolic CVA -Endocarditis with embolic phenomenon suspected -Sepsis -Back Pain, r/o epidural abscess -IV heroin use -metabolic acidosis Plan: Neuro- neurochecks q4h. has back pain and some tenderness along lumbar area. Incontinence of bowel? Obtain CT cervical/thoracic/lumbar spine today. MRI brain pending today. High suspicion for embolic event given peripheral lesions , fevers, h/o drug use. Fall prec. Pain control. Will await CT/MRI findings before calling neurosurgery/neuro consult. Pain control with dilaudid for now. CVS- tachycardic. On sepsis protocol. Given history of IVDA, high suspicioin for endocarditis. IV cefepime/vanco. TTE done, awaiting read for vegetations. No auscultated murmur. LA negative, warm ext. +embolic phenomenon in extremities noted. Blood cultures done. Difficult stick, midline to be placed now. Resp- on RA, no distress. ID- febrile 102, wbc 15->7.8. LA negative. IVDA+, sepsis signs, +embolic phenomenon, track salgado+. Cover for Staph/strept. Cont Cefepime and vanco for now. TTE for endocarditis w/u. CT spine for epidural abscess eval. MRI brain pending. GI- regular diet as tolerated. PPI proph. Renal- CR okay, making urine. Noted acidosis. LA neg. NS 125cc/hour, dec to 100/ hr. no paredes. Heme- hg drop after IVF. Plt okay. Heparin proph. Scds. Endo- fingersticks as needed. Musculsk- CT spine today for eval of epidural. Wounds- none Nutrition- regular diet DVT prophylaxis: start heparin proph, scds GI prophylaxis: PPI iv Central Line: no Arterial Line: no Paredes Cathetor: no Disposition: ICU for sepsis, r/o endocarditis and epidural collection Code Status: full code Total Critical Care time is 40 minutes, excluding procedures/teaching Maxwell Mcdonnell MD Proj Engineer (Electronically Signed)
[2017-07-30 13:59] LABS: ABS Basophils 0 10^3/ul (0-0.2); ABS Eosinophils 0 10^3/ul (0-0.6); ABS Lymphocytes 0.2 10^3/ul (1.0-4.8); ABS Monocytes 0.1 10^3/ul (0-0.8); ABS Neutrophils 7.6 10^3/ul (1.5-7.7); ABS Nucleated RBC 0 10^3/ul; Eosinophil % 0.3 % (0-6); Lymphocyte % 2.3 % (25-47); Mean Platelet Volume 9 um3 (7.4-10.4); Nucleated Red Blood Cells % 0; Platelet Count 92 10^3/ul (150-450)
[2017-07-30] MEDS: Heparin VIAL(*) 5000 UNITS/ML VIAL (FIVE THOUSAND) SUBCUT SCH ×2 (14:20→21:58)
[2017-07-30] MEDS: Acetaminophen TAB* 325 MG PO PRN ×2 (14:21→21:58)
[2017-07-30] MEDS ORDERED: Vancomycin(*) 1,000 MG in NS 0.9% 250 ML* 250 ML IVPB SCH (14:30)
[2017-07-30] MEDS ORDERED: HYDROmorphone INJ* 2 MG/ML CARPUJECT SYRINGE IV SLOW PU ONE ×2 (15:00→20:00)
--- NOTE | 2017-07-30 15:55 | ECHO ---
Patient: CATALINA NEGRON [facility], [place] Rec#: [id number] : 1985 Date: 07/30/2017 Age: 31y Height: 167.6 cm / 66.0 in Weight: 81.7 kg / 180.1 lbs Sex: F BSA: 1.9 Room#: ICU 7 Admit Date#: 07/30/2017 Type: Inpatient Referring: Pj Nance MD Reading: Anuel Tejada MD [employer] Mechanical: Jessy Darby RN RDCS Transthoracic Echocardiogram Indication: Fever, murmur, suspected endocarditis with septic emboli BP: 105/65 HR: 104 Rhythm: Tachycardia Findings History: IV heroin use, smoker, obesity. Technical Comments: The study is technically limited due to patient body habitus. The study is technically limited due to the patient's smoking history. The study was technically limited due to the patient's inability to lay in the left lateral decubitus position. Completed at 1245. Left Ventricle: The left ventricular chamber size is normal. Global left ventricular wall motion and contractility are within normal limits. Left ventricular systolic function is at the lower limits of normal. The estimated ejection fraction is 50-55%. Normal left ventricular diastolic filling is observed. Left Atrium: The left atrial chamber size is normal. Right Ventricle: The right ventricular cavity size is normal. The right ventricular global systolic function is low normal. Right Atrium: The right atrial cavity size is normal. Aortic Valve: The aortic valve structure is not well visualized. The aortic valve leaflets are mildly thickened. There is no evidence of aortic regurgitation. There is no evidence of aortic stenosis. Mitral Valve: The mitral valve leaflets are mildly thickened. There is trace to mild mitral regurgitation. There is no evidence of mitral stenosis. Tricuspid Valve: The tricuspid valve structure is not well visualized. There is trace tricuspid regurgitation. Unable to estimate the right ventricular systolic pressure. There is no tricuspid stenosis. Pulmonic Valve: The pulmonic valve structure is not well visualized. There is no evidence of pulmonic regurgitation. There is no pulmonic stenosis. Pericardium: There is no significant pericardial effusion. A pericardial fat pad is visualized. Aorta: There is no dilatation of the ascending aorta. There is no dilatation of the aortic arch. There is no dilation of the aortic root. Pulmonary Artery: The main pulmonary artery is not well visualized. Venous: The inferior vena cava appears normal in size. There is less than 50% respiratory change in the inferior vena cava dimension. Conclusions The study is technically limited due to patient body habitus. Global left ventricular wall motion and contractility are within normal limits. Left ventricular systolic function is at the lower limits of normal. The estimated ejection fraction is 50-55%. The right ventricular global systolic function is low normal. The aortic valve leaflets are mildly thickened. There is no evidence of aortic stenosis. There is trace to mild mitral regurgitation. There is trace tricuspid regurgitation. Unable to estimate the right ventricular systolic pressure. Images not clear enought to rule out endocarditis There is no significant pericardial effusion. Measurements Name Value Normal Range RVDdMajor (2D) 3.5 cm (2.2 - 4.4) RAd ISD 4CH 4.6 cm (3.4 - 4.9) RA (A4C)W 3.8 cm (2.9 - 4.6) IVSd (2D) 0.8 cm (0.6 - 1) LVPWd (2D) 0.9 cm (0.6 - 1) LVIDd (2D) 5.4 cm (3.6 - 5.4) LVIDs (2D) 3.9 cm - LV FS (2D) 28 % (25 - 45) Aortic Annulus 2.1 cm (1.4 - 2.6) Ao root diameter (2D) 2.7 cm (2.1 - 3.5) Ascending Ao 2.7 cm (2.1 - 3.4) LA dimension (AP) 2D 3.7 cm (2.3 - 3.8) LAd ISD 4CH 4.7 cm (2.9 - 5.3) LA ISD 4CH W 4.4 cm (2.5 - 4.5) Name Value Normal Range MV E-wave Vmax 1 m/sec - MV deceleration time 126 msec - MV A-wave Vmax 0.72 m/sec - MV E:A ratio 1.4 ratio - LV septal e' Vmax 0.13 m/sec - LV lateral e' Vmax 0.15 m/sec - LV E:e' septal ratio 7.7 ratio - LV E:e' lateral ratio 6.7 ratio - Name Value Normal Range AV Vmax 1.8 m/sec - AV VTI 28.6 cm - AV peak gradient 12.8 mmHg - AV mean gradient 8.5 mmHg - LVOT Vmax 1.5 m/sec - LVOT VTI 28.6 cm - LVOT peak gradient 9.1 mmHg - LVOT mean gradient 6.1 mmHg - Name Value Normal Range IVC diameter 1.5 cm - Name Value Normal Range PV Vmax 1.1 m/sec -
[2017-07-30] MEDS ORDERED: ALPRAZolam TAB* 0.25 MG PO ONE (16:29)
--- NOTE | 2017-07-30 17:00 | RAD ---
Indication: Narcotic withdrawal. Endocarditis, incontinence, back pain, assess for cord compression/ epidural abscess. Comparison: June 08, 2016 contrast-enhanced CT chest. Technique: Feedback-Machinea 1.5 Alicia [id number] with GEM suite. Noncontrast MRI thoracic spine. Gross patient motion significantly degrades image quality. Report: The thoracic spinal cord is normal in morphology and patterns of signal intensity. While assessment is limited without IV contrast there is no visualized epidural inflammatory collection or mass effect. Normal bone marrow signal throughout the [id number]. Negative for increased T2 signal at the disc spaces or vertebral endplate erosion to suggest osteomyelitis discitis. Negative for fracture. Normal vertebral alignment accounting for exam positioning without spondylolisthesis or subluxation at any level. Small Schmorl node endplate herniations at multiple thoracic spine levels. Multilevel mid thoracic spine disc desiccation and moderate disc space narrowing consistent with degenerative spondylosis. No dorsal disc herniation or acquired central canal or foraminal stenosis evident at any level. Dorsal dependent subcutaneous edema. IMPRESSION: Limited exam due to motion artifact and absence of IV contrast. There is no evidence for osteomyelitis discitis, epidural abscess, or thoracic spinal cord compression.
[2017-07-30] MEDS: NS 0.9% 1000 ML* 1,000 ML IV SCH (17:01)
[2017-07-30] MEDS: LORazepam INJ* 2 MG/ML 1 ML VIAL IV PUSH PRN (19:03)
[2017-07-30] MEDS ORDERED: HYDROmorphone INJ* 2 MG/ML CARPUJECT SYRINGE IV SLOW PU PRN (19:41)
[2017-07-30] MEDS ORDERED: LORazepam INJ* 2 MG/ML 1 ML VIAL IV PUSH PRN (20:00)
--- NOTE | 2017-07-30 20:25 | CONS ---
CONSULTATION REPORT: DATE OF CONSULT: 07/30/17 REQUESTING PHYSICIAN: Dr. Nance. CONSULTING SERVICE: Infectious Disease. REASON FOR CONSULTATION: Fever, question endocarditis. IMPRESSION: 1. Fever, myalgia with Janeway lesion and Osler nodes on bilateral hands and feet, most likely infective endocarditis. 2. Low back pain. Subjective incontinence which has not been seen here. Strength otherwise intact in lower extremities. Vertebral osteodiskitis, paraspinal abscess and epidural abscess are on the differential. 3. Right visual field cut with a CT scan that shows a left occipital lobe 4 mm focus with surrounding hypoattenuation of 1.7 cm according to Radiology. The differential in the setting of infective endocarditis includes brain abscess or septic emboli. She does not have any meningeal signs. 4. History of injection drug use. 5. Thrombocytopenia due to sepsis. 6. Sepsis present on admission. 7. Encephalopathy was present on admission, improving. RECOMMENDATIONS: 1. MRI of the spine today to rule out cord compression due to epidural collection, which if present would require decompression. Subsequent MRI of the brain to evaluate for abscess versus embolic changes in the occipital lobe. 2. If the transthoracic echocardiogram is unrevealing, then a transesophageal echocardiogram. We will follow her closely during the first couple of weeks of her antibiotic therapy for further evidence of embolic events which would suggest the need for surgical intervention according to the 2015 AHA infective endocarditis management guidelines. 3. Blood cultures are pending. Continue broad spectrum antibiotics while we are awaiting those. 4. Check an HIV antibody. HISTORY OF PRESENT ILLNESS: This is a 31-year-old woman with a history of injection drug use admitted with myalgia. Admitted to the hospital with encephalopathy that is improved significantly since early this morning when she arrived. She notes 4 to 5 days of myalgia and worsening low back pain. No trouble moving her legs, but does have worsening of back pain if she moves her legs. She has some painful spots on her hands and feet bilaterally for the last couple of days. She thinks she has had some change in her peripheral vision particularly on the right. She has had frontal headaches for 2 days. She denies injection use, though medical records suggest she is actively injecting heroin. When she got here, she had a CT of the brain that showed the left occipital lesion. She had blood cultures done. Was started on vanco, Cipro, Flagyl, then vancomycin and cefepime. She is continued on those and tolerated them well. She is persistently febrile at 39.2 degrees and tachycardic. She continues to complain of low back pain despite pain medicine. Her mental status improved during the day. She has a transthoracic echocardiogram which is pending. She has not had an infection requiring hospitalization in the past or recent HIV testing. PAST MEDICAL HISTORY: Heroin injection. MEDICATIONS: 1. Tylenol. 2. Albuterol. 3. Cefepime 2 g IV every 12 hours. 4. Pantoprazole 40 mg a day. 5. Vancomycin 1250 mg initially and then 1 g IV every 6 hours. ALLERGIES: PENICILLIN caused hives. FAMILY HISTORY: Mother at age 60 with pneumonia and esophageal cancer. Father alive in his 60s and has heart condition. SOCIAL HISTORY: She lives in [place] with her sister. Injecting heroin. No travel. No sick contacts. REVIEW OF SYSTEMS: A 14-point review of systems was negative except as noted above. PHYSICAL EXAM: Vital Signs: Temperature is 39.2, heart rate of 105, respiratory rate 20, blood pressure 108/57, O2 sat 98% room air. In general, she is awake and feels uncomfortable. Neurologic: She is oriented x3. Follows all commands. Cranial nerves are intact except for decreased visual field right lateral eye. Strength is 5/5 in the quadriceps, tibialis anterior and gastrocnemius bilaterally. There is no lower extremity clonus bilaterally. Sensation is intact to light touch in all extremities. HEENT: There is white plaque on her tongue. There are no other lesions. Neck is supple without nuchal rigidity. Lymph Nodes: There are no cervical, supraclavicular, inguinal , axillary or epitrochlear lymphadenopathy. Heart is regular and tachycardic without murmurs. Lungs are clear to auscultation bilaterally. Abdomen: Soft, nontender, nondistended. There are bowel sounds present. Skin: On the right greater than left hand and foot, there are erythematous and violaceous macules and petechiae which are very tender. There is some blanching areas and 2 to 3 mm areas of erythema. Musculoskeletal: There is lumbar spine tenderness to palpation. There is no cervical or thoracic tenderness. There is no joint synovitis. DIAGNOSTIC STUDIES/LAB DATA: White blood cell count 7 down from 15, hemoglobin 10, platelets 92,000. Creatinine is 0.4. Troponin 0.07. CRP 250 down from 305. Urinalysis shows blood. The toxicology screen shows opiates and cannabinoids. Influenza PCR is negative. Please see impressions and recommendations outlined above, which I have discussed with Dr. Mcdonnell. Thank you for asking me to see Ms. Flores in consultation. [id number]/[facility] #: [id number] [facility]
[2017-07-30] MEDS: Cefepime 2 GM in Dextrose(*) 2 GM/50 ML BAG IV SCH (21:58)
[2017-07-30] MEDS: Vancomycin(*) 1,000 MG in NS 0.9% 250 ML* 250 ML IVPB SCH (22:53)
[2017-07-31] MEDS: HYDROmorphone INJ* 2 MG/ML CARPUJECT SYRINGE IV SLOW PU PRN ×7 (00:12→20:26)
[2017-07-31] MEDS: Heparin VIAL(*) 5000 UNITS/ML VIAL (FIVE THOUSAND) SUBCUT SCH ×3 (00:18→14:18)
[2017-07-31] MEDS: LORazepam INJ* 2 MG/ML 1 ML VIAL IV PUSH PRN ×4 (01:41→20:27)
[2017-07-31] MEDS: Acetaminophen TAB* 325 MG PO PRN (05:27)
[2017-07-31] MEDS: NS 0.9% 1000 ML* 1,000 ML IV SCH ×2 (05:44→20:09)
[2017-07-31 05:51] LABS: Hematocrit 29 % (35-47); Hemoglobin 9.7 g/dl (12.0-16.0); Mean Corpuscular HGB Conc 34 g/dl (31-36); Mean Corpuscular Hemoglobin 28 pg (27-31); Mean Corpuscular Volume 82 fL (80-97); Mean Platelet Volume 8 um3 (7.4-10.4); Platelet Count 164 10^3/ul (150-450); Red Blood Count 3.51 10^6/ul (4.0-5.4); Red Cell Distribution Width 15 % (10.5-15); White Blood Count 10.9 10^3/ul (3.5-10.8)
[2017-07-31 06:12] LABS: EGFR Non-African American 131.7 (>60)
[2017-07-31 06:29] LABS: Monocytes % 10 % (0-13)
[2017-07-31] MEDS: Vancomycin(*) 1,000 MG in NS 0.9% 250 ML* 250 ML IVPB SCH ×4 (06:39→22:32)
[2017-07-31] MEDS: Cefepime 2 GM in Dextrose(*) 2 GM/50 ML BAG IV SCH (08:51)
[2017-07-31] MEDS: Pantoprazole IV* 40 MG IV SCH (08:58)
--- NOTE | 2017-07-31 10:41 | PN ---
Progress Note - Progress Note Date of Service: 07/31/17 SOAP: Subjective: CC: fever HPI: 31 year old woman IDU, with fever, myalgia, vision changes; low back pain, could not finish MRI overnight due to anxiety. Fever overnight, none today. Ongoing low back pain, can move legs. Objective: Vital Signs Temp 37.1 C 07/31/17 10:01 Pulse 93 07/31/17 10:01 Resp 18 07/31/17 10:07 BP 75/40 07/31/17 10:01 Pulse Ox 99 07/31/17 10:01 Intake & Output 07/30/17 07/31/17 07/31/17 18:59 06:59 18:59 Intake Total 1229 2378 Output Total 700 1425 Balance 529 953 Weight 170 lb 190 lb 11.198 oz Intake: IV Fluids 710 1578 abx 463 ns 710 1115 IVPB 519 abx 369 ns 150 Oral 800 Output: Oropeza 700 1425 Gen:awake, uncomfortable, tearful Neuro: answers questions, strength 5/5 quad/TA/gastroc BL HEENT: no conj hemorrhage Heart:regular no murmur Lungs:CTA BL Abd:+BS NTND soft Skin: erythematous/purple papules on fingertips and toes, no other rash MSK: L spine tender Laboratory Results - last 24 hr 07/30/17 07/30/17 07/30/17 01:40 06:35 13:00 WBC RBC Hgb Hct MCV MCH MCHC RDW Plt Count MPV Neut % (Auto) Lymph % (Auto) Delta % (Auto) Eos % (Auto) Baso % (Auto) Absolute Neuts (auto) Absolute Lymphs (auto) Absolute Monos (auto) Absolute Eos (auto) Absolute Basos (auto) Absolute Nucleated RBC Immature Gran % Neutrophils % Band Neutrophils % Lymphocytes % Reactive Lymphs % Monocytes % Metamyelocytes % Nucleated RBC % Abs Neuts (Manual) Abs Lymphs (Manual) Abs Monocytes (Manual) Absolute Eos (Manual) Abs Basophils (Manual) Normal RBC Morphology ESR Hem Pathologist Commnt Sodium 128 L Potassium 3.1 L Chloride 98 L Carbon Dioxide 19 L Anion Gap 11 BUN 7 Creatinine 0.44 L Est GFR ( Amer) 214.5 Est GFR (Non-Af Amer) 166.8 BUN/Creatinine Ratio 15.9 Glucose 118 H Lactic Acid 0.9 Calcium 8.1 L Troponin I 0.07 H* C-Reactive Protein 242.16 H Procalcitonin 0.9 H Beta HCG, Quant 2.01 07/30/17 07/31/17 07/31/17 13:00 05:35 05:35 WBC 7.8 10.9 H RBC 3.70 L 3.51 L Hgb 10.2 L 9.7 L Hct 30 L 29 L MCV 82 82 MCH 28 28 MCHC 34 34 RDW 15 15 Plt Count 92 L D 164 MPV 9 8 Neut % (Auto) 96.2 H Not Reportable Lymph % (Auto) 2.3 L Not Reportable Delta % (Auto) 0.9 L Not Reportable Eos % (Auto) 0.3 Not Reportable Baso % (Auto) 0.3 Not Reportable Absolute Neuts (auto) 7.6 Not Reportable Absolute Lymphs (auto) 0.2 L Not Reportable Absolute Monos (auto) 0.1 Not Reportable Absolute Eos (auto) 0 Not Reportable Absolute Basos (auto) 0 Not Reportable Absolute Nucleated RBC 0 Not Reportable Immature Gran % 2 Neutrophils % 82 Band Neutrophils % 1 Lymphocytes % 5 L Reactive Lymphs % 1 Monocytes % 10 Metamyelocytes % 1 Nucleated RBC % 0 Not Reportable Abs Neuts (Manual) 9.2 H Abs Lymphs (Manual) 0.5 L Abs Monocytes (Manual) 1.1 H Absolute Eos (Manual) 0 Abs Basophils (Manual) 0 Normal RBC Morphology Not Reportable ESR 30 H Hem Pathologist Commnt Sodium 131 L Potassium 2.9 L Chloride 101 Carbon Dioxide 23 Anion Gap 7 BUN 7 Creatinine 0.54 Est GFR ( Amer) 169.3 Est GFR (Non-Af Amer) 131.7 BUN/Creatinine Ratio 13.0 Glucose 124 H Lactic Acid Calcium 8.1 L Troponin I C-Reactive Protein Procalcitonin Beta HCG, Quant Assessment: 1. MRSA bacteremia with infective endocarditis (TTE negative, Janeway lesions) 2. back pain, r/o spine infection 3. IVDU in brief remission 4. left occipital lesion, suspect abscess 4. PCN allergy Plan: 1. vancomycin goal tr 15-20, dc cefepime, recheck BC 08/01 2. MRI spine with mickey today, with anesthesia if needed, also needs brain MRI and eventual TORITO 3. frequent neuro checks, consideration for transfer if new deficits develop that would suggest ongoing embolization.
--- NOTE | 2017-07-31 11:07 | PN ---
Progress Note - Progress Note Date of Service: 07/31/17 Note: Progress Note Critical Care 24 hours events: -admitted yesterday; attempted MRI x2 but restless and pain and wont tolerate MRI -increased pain meds -afebrile today now, all day tmax 102 -back pain+ but slightly better Tele: sinus tachy Vitals: Vital Signs Temp 98.8 F 07/31/17 10:01 Pulse 93 07/31/17 10:01 Resp 21 07/31/17 10:32 BP 75/40 07/31/17 10:01 Pulse Ox 99 07/31/17 10:01 Intake & Output 07/30/17 07/31/17 07/31/17 18:59 06:59 18:59 Intake Total 1229 2378 Output Total 700 1425 Balance 529 953 Weight 170 lb 190 lb 11.198 oz Intake: IV Fluids 710 1578 abx 463 ns 710 1115 IVPB 519 abx 369 ns 150 Oral 800 Output: Oropeza 700 1425 O2/Vent: RA Infusions: NS 125cc/hr Current Medications: Acetaminophen (Tylenol Tab*) 650 mg PO Q6H PRN PRN Reason: FEVER/PAIN Last Admin: 07/31/17 05:27 Dose: 650 mg Albuterol (Ventolin 2.5 Mg/3 Ml Neb.Serena*) 2.5 mg INH Q2H PRN PRN Reason: SOB/WHEEZING Heparin Sodium (Porcine) (Heparin Vial(*)) 5,000 units SUBCUT Q8HR [facility] Last Admin: 07/31/17 06:37 Dose: Not Given Heparin Sodium (Porcine) (Heparin Flush Picc/Ml/Cvc(*)) 1 - 3 ml FLUSH 0600, 1800 [facility] PRN Reason: Protocol Last Admin: 07/31/17 06:37 Dose: Not Given Hydromorphone HCl (Dilaudid Inj*) 0.5 mg IV SLOW PU ONCE PRN PRN Reason: PAIN Stop: 07/31/17 19:39 Last Admin: 07/30/17 21:08 Dose: 0.5 mg Hydromorphone HCl (Dilaudid Inj*) 1 mg IV SLOW PU Q1H PRN PRN Reason: PAIN Sodium Chloride (Ns 0.9% 1000 Ml*) 1,000 mls @ 100 mls/hr IV PER RATE [facility] Last Admin: 07/31/17 05:44 Dose: 100 mls/hr Vancomycin HCl 1,000 mg/ (Sodium Chloride) 250 mls @ 166.667 mls/hr IVPB Q8H [facility] Last Admin: 07/31/17 06:39 Dose: 166.667 mls/hr Potassium Chloride (Potassium Chloride 10 Meq/50 Ml Ivpremix*) 10 meq in 50 mls @ 50 mls/hr IV Q2H [facility] Stop: 07/31/17 13:33 Lorazepam (Ativan Inj*) 1 mg IV PUSH Q4HR PRN PRN Reason: ANXIETY Last Admin: 07/31/17 10:07 Dose: 1 mg Nicotine (Nicotine Patch 7 Mg/24 Hr*) 1 patch TRANSDERM DAILY [facility] Ondansetron HCl (Zofran Inj*) 4 mg IV Q6H PRN PRN Reason: NAUSEA Oxycodone/Acetaminophen (Percocet 5/325 Tab*) 1 tab PO Q6H PRN PRN Reason: PAIN Pantoprazole Sodium (Protonix Iv*) 40 mg IV DAILY [facility] Last Admin: 07/31/17 08:58 Dose: 40 mg Pharmacy Consult (Vancomycin Per Pharmacy*) 1 note FOLLOW UP .VANC PER PHARMACY [facility] Pharmacy Profile Note (Vancomycin Trough Check) 1 note FOLLOW UP 1400 ONE Stop: 07/31/17 14:01 Pharmacy Profile Note (Nicotine Patch Removal Note*) 1 note FOLLOW UP 0600 [facility] Potassium Chloride (Klor Con Er Tab*) 40 meq PO BID [facility] Stop: 08/01/17 21:01 Physical Exam: General: awake, alert, pain at times from headache and back pain, no diaphoresis Head: normocephalic, atraumatic HEENT: no pallor, no icterus, moist mucous membranes Neck: soft, supple, no jvd, no stridor CVS: tachycardic, normal rhythm, no murmur Resp: bilateral air entry, no rhales, no wheeze, no rhonchi, no acc muscle use Abdomen: soft, nontender, nondistended, bowel sounds present Ext: pulses+, warm, no edema; mild right foot erythema on lateral aspect, nontender Skin: noted areas of nodules and tenderness at distal tips of hands and feet as well we palms/soles of feet and legs/arms, tender to touch; no macular lesions; no edema, pulses+; track salgado in arms noted. Neuro: awake, alert, orientedx3; moving all ext equally, no numbness. There is some right sided visual field deficit noted Labs: Laboratory Results - last 24 hr 07/30/17 07/30/17 07/30/17 01:40 06:35 13:00 WBC RBC Hgb Hct MCV MCH MCHC RDW Plt Count MPV Neut % (Auto) Lymph % (Auto) Grant % (Auto) Eos % (Auto) Baso % (Auto) Absolute Neuts (auto) Absolute Lymphs (auto) Absolute Monos (auto) Absolute Eos (auto) Absolute Basos (auto) Absolute Nucleated RBC Immature Gran % Neutrophils % Band Neutrophils % Lymphocytes % Reactive Lymphs % Monocytes % Metamyelocytes % Nucleated RBC % Abs Neuts (Manual) Abs Lymphs (Manual) Abs Monocytes (Manual) Absolute Eos (Manual) Abs Basophils (Manual) Normal RBC Morphology ESR Hem Pathologist Commnt Sodium 128 L Potassium 3.1 L Chloride 98 L Carbon Dioxide 19 L Anion Gap 11 BUN 7 Creatinine 0.44 L Est GFR ( Amer) 214.5 Est GFR (Non-Af Amer) 166.8 BUN/Creatinine Ratio 15.9 Glucose 118 H Lactic Acid 0.9 Calcium 8.1 L Troponin I 0.07 H* C-Reactive Protein 242.16 H Procalcitonin 0.9 H Beta HCG, Quant 2.01 07/30/17 07/31/17 07/31/17 13:00 05:35 05:35 WBC 7.8 10.9 H RBC 3.70 L 3.51 L Hgb 10.2 L 9.7 L Hct 30 L 29 L MCV 82 82 MCH 28 28 MCHC 34 34 RDW 15 15 Plt Count 92 L D 164 MPV 9 8 Neut % (Auto) 96.2 H Not Reportable Lymph % (Auto) 2.3 L Not Reportable Grant % (Auto) 0.9 L Not Reportable Eos % (Auto) 0.3 Not Reportable Baso % (Auto) 0.3 Not Reportable Absolute Neuts (auto) 7.6 Not Reportable Absolute Lymphs (auto) 0.2 L Not Reportable Absolute Monos (auto) 0.1 Not Reportable Absolute Eos (auto) 0 Not Reportable Absolute Basos (auto) 0 Not Reportable Absolute Nucleated RBC 0 Not Reportable Immature Gran % 2 Neutrophils % 82 Band Neutrophils % 1 Lymphocytes % 5 L Reactive Lymphs % 1 Monocytes % 10 Metamyelocytes % 1 Nucleated RBC % 0 Not Reportable Abs Neuts (Manual) 9.2 H Abs Lymphs (Manual) 0.5 L Abs Monocytes (Manual) 1.1 H Absolute Eos (Manual) 0 Abs Basophils (Manual) 0 Normal RBC Morphology Not Reportable ESR 30 H Hem Pathologist Commnt Sodium 131 L Potassium 2.9 L Chloride 101 Carbon Dioxide 23 Anion Gap 7 BUN 7 Creatinine 0.54 Est GFR ( Amer) 169.3 Est GFR (Non-Af Amer) 131.7 BUN/Creatinine Ratio 13.0 Glucose 124 H Lactic Acid Calcium 8.1 L Troponin I C-Reactive Protein Procalcitonin Beta HCG, Quant Imaging: CT brain 07/30 noted left occipital 4mm hypoattentuation with some edema+ MRI thoracic spine - artifact from movement+; no acute process noted ECHO 07/30 - no vegetation noted, normal LV function, no gross valve abnormality Assessment: 31y F with no sig pmhx; known heroin use, active. Comes to ER for change in mental status. She states she use to use it before and decreased use of heroine but days ago developed increasing pain in back and headaches. She started to use heroin IV again 4 days back. She comes in for loss of central vision and blurring of peripheral vision ~2 days with headache. She has had sweats and fever/chills. She has pain when walking on her feet. She has increased diarrhea but more so loss of control of her bowels. -Left occipital lobe lesion, possible septic/embolic CVA, r/o abscess -MRSA bacteremia/endocarditis -Sepsis -Back Pain, r/o epidural abscess -IV heroin use -metabolic acidosis Plan: Neuro- neurochecks q4h. back pain+, incontinence+. cont dilaudid. plan for MRI spine and MRI brain again today to eval for epidural collection and brain abscess. May need anesthesia for moderate sedation during procedure. CVS- tachycardia better. dec IVF to 75cc/hour, tolerating PO intake. MRSA+ blood culture all sets. IV Vanco. TTE 07/30 without vegetation. Will need TORITO to further evaluate. Given history of IVDA, high suspicion for endocarditis. + embolic phenomenon in extremities noted. Resp- on RA, no distress. ID- febrile 102, now afebrile, wbc 10. IVDA+, sepsis signs, +embolic phenomenon , track salgado+. MRSA+ blood cultures. d/c cefepime. cont IV vanco. TTE negative. WIll need TORITO. Reattempted MRI spine and MRI brain today for eval of abscess. GI- regular diet as tolerated. PPI proph. NPO for MRI Renal- CR okay, making urine. Noted acidosis. dec ns infusion. Heme- hg drop, no bleeding, monitor. Plt okay. Heparin proph. Scds. Endo- fingersticks as needed. Musculsk- MRI spine today Wounds- none Nutrition- regular diet DVT prophylaxis: heparin proph, scds GI prophylaxis: PPI iv Central Line: no Arterial Line: no Oropeza Cathetor: no Disposition: stable for transfer to medical floor Code Status: full code Maxwell Mcdonnell MD Director Of Graduate Admissions (Electronically Signed)
[2017-07-31] MEDS: KCL 10 MEQ/50 ML IVPREMIX* 10 MEQ/50 ML BAG IV SCH ×2 (11:44→18:37)
[2017-07-31] MEDS: Nicotine PATCH 7 MG/24 HR* PATCH TRANSDERM SCH (11:45)
[2017-07-31] MEDS: Potassium Chlor TAB* 20 MEQ TAB.ER PO SCH ×2 (11:45→20:26)
[2017-07-31] MEDS ORDERED: Vancomycin Trough Check NOTE FOLLOW UP ONE (14:00)
[2017-07-31] MEDS ORDERED: Midazolam* 1 MG/ML 5 ML VIAL (5 MG) ONE (14:16)
[2017-07-31] MEDS ORDERED: Gadoteridol* (CONTRAST) 279.3 MG/ML 10 ML IV ONE (15:07)
[2017-07-31] MEDS ORDERED: fentaNYL* 50 MCG/ML 2 ML VIAL (100 MCG VIAL) ONE ×2 (18:05→18:48)
[2017-07-31] MEDS ORDERED: Acetaminophen IV 1GM/100ML * 100 ML ONE (18:15)
[2017-07-31] MEDS ORDERED: Ibuprofen TAB* 600 MG PO PRN (18:20)
[2017-07-31] MEDS ORDERED: Naloxone* 0.4 MG/ML 1 ML VIAL IV PRN (18:20)
[2017-07-31] MEDS ORDERED: fentaNYL* 50 MCG/ML 2 ML VIAL (100 MCG VIAL) IV PRN (18:20)
[2017-07-31] MEDS ORDERED: Acetaminophen IV 1GM/100ML * 1,000 MG/100 ML VIAL IVPB ONE (18:20)
[2017-07-31] MEDS ORDERED: HYDROmorphone INJ* 1 MG/ML CARPUJECT SYRINGE IV PRN (18:20)
[2017-07-31] MEDS ORDERED: HYDROmorphone INJ* 2 MG/ML CARPUJECT SYRINGE ONE (18:49)
[2017-08-01] MEDS: HYDROmorphone INJ* 2 MG/ML CARPUJECT SYRINGE IV SLOW PU PRN ×10 (01:40→23:02)
[2017-08-01] MEDS: Heparin VIAL(*) 5000 UNITS/ML VIAL (FIVE THOUSAND) SUBCUT SCH ×3 (06:04→22:58)
[2017-08-01] MEDS: Vancomycin(*) 1,000 MG in NS 0.9% 250 ML* 250 ML IVPB SCH ×3 (06:07→22:19)
[2017-08-01] MEDS: oxyCODONE/Acetamin 5/325 MG* TAB PO PRN ×2 (06:17→18:41)
[2017-08-01] MEDS: Nicotine Patch Removal NOTE FOLLOW UP SCH (06:18)
--- NOTE | 2017-08-01 08:46 | RAD ---
INDICATION: MRSA endocarditis, back pain evaluate for epidural abscess. COMPARISON: Comparison is made with a prior MRI of the brain from July 30, 2017. TECHNIQUE: Sagittal T1, axial T1, T2, susceptibility, FLAIR and diffusion-weighted images were obtained. In addition, axial, sagittal and coronal T1-weighted images were obtained following intravenous injection of 18 ml of ProHance contrast. FINDINGS: There are multiple ring-enhancing lesions present within the frontal, parietal, and axial orbital, temporal lobes and within the cerebellum with associated restricted diffusion. Some of the lesions are hemorrhagic. There is mild surrounding edema adjacent to the lesions. The ventricles, cisterns and sulci are within normal normal limits. No significant mass effect or midline shift is seen. The visualized portion of the paranasal sinuses and mastoid air cells appear clear. IMPRESSION: THERE ARE MULTIPLE RING-ENHANCING LESIONS WITH ASSOCIATED RESTRICTED DIFFUSION. A COUPLE OF THE LESIONS ARE HEMORRHAGIC. THESE WOULD BE MOST CONSISTENT WITH ABSCESSES FROM SEPTIC EMBOLI MUCH LESS LIKELY METASTATIC DISEASE GIVEN THE PATIENT'S CLINICAL HISTORY. RECOMMEND CONTINUED FOLLOW-UP.
[2017-08-01] MEDS: LORazepam INJ* 2 MG/ML 1 ML VIAL IV PUSH PRN ×2 (08:55→22:14)
[2017-08-01] MEDS: Pantoprazole IV* 40 MG IV SCH (08:55)
--- NOTE | 2017-08-01 09:00 | RAD ---
Indication: MRSA endocarditis. Back pain. Assess for epidural abscess. Comparison: June 08, 2016 CT. Technique: [employer] 1.5 Alicia [id number] with GEM suite. Noncontrast and contrast-enhanced MRI lumbar sacral spine. 18 mL ProHance administered IV. Report: Motion artifact degrades image quality. Bilateral small dependent pleural effusions with associated atelectasis noted. Enlarged liver and spleen. Negative for hydronephrosis. Unremarkable conus medullaris and cauda equina. Mild edematous reactive endplate change flanking the L5-S1 without concern. Small T1 and T2 hyperintense lesions at the T8 and T9 vertebral bodies consistent with benign osseous hemangiomas without concern. No worrisome bone marrow signal change. Negative for fracture or spondylolysis at any level. Normal vertebral alignment accounting for exam positioning without spondylolisthesis or subluxation at any level. T12-L1: Unremarkable disc level for age without acquired spinal stenosis. L1-L2: Unremarkable disc level for age without acquired spinal stenosis. L2-L3: Unremarkable disc level for age without acquired spinal stenosis. L3-L4: Unremarkable disc level for age without acquired spinal stenosis. L4-L5: Unremarkable disc level for age without acquired spinal stenosis. L5-S1: Severe disc space narrowing and broad posterior disc extrusion grossly unchanged from the 2016 CT. There is elevation of the posterior longitudinal ligament extending up to 0.5 cm posterior to the bony margin of the L5 and S1 vertebral bodies with associated mild increased T2 signal and enhancement without evidence for discrete loculated fluid collection. Similar paravertebral increased T2 signal and enhancement noted at the bilateral anterolateral margins of the L5-S1 intervertebral disc most conspicuous on the sagittal T1 fat sat postcontrast series. Moderately severe central canal stenosis at L5-S1 and moderate bilateral foraminal stenosis without gross change compared with the 2016 CT. Robbins images saved on the [facility] PACS. IMPRESSION: 1. Potential although not definitive inflammatory change in the epidural and paravertebral region at L5-S1 given the clinical context without evidence for a loculated abscess collection. Alternatively the noted signal abnormalities may be entirely difficult to chronic advanced degenerative spondylosis. Correlate with clinical assessment and consider reassessment with MRI in several days if there is persistent high clinical index of suspicion. 2. Bilateral small dependent pleural effusions with associated atelectasis noted. Enlarged liver and spleen. Negative for hydronephrosis.
[2017-08-01] MEDS: Nicotine PATCH 7 MG/24 HR* PATCH TRANSDERM SCH (09:12)
--- NOTE | 2017-08-01 09:23 | RAD ---
Edited for charges. Indication: MRSA endocarditis. Back pain. Assess for epidural abscess. June 08, 2016 CT. Comparison: No relevant prior exams available on the [facility] [place] for comparison. Technique: [employer] [place] 1.5 Alicia [id number] with GEM suite. Noncontrast and contrast- enhanced MRI cervical spine. 18 mL administered IV. The caudal margin of the field-of- view is at T10. Report: The cervical spinal cord is normal in morphology and patterns of signal intensity. Negative for syringohydromyelia. Negative for abnormal intra or extra-axial enhancement. A few small T1 and T2 hyperintense lesions are noted at the mid thoracic spine consistent with osseous hemangiomas. No suspicious bone marrow signal change. Negative for fracture or spondylolysis at any level. Normal vertebral alignment accounting for exam positioning without spondylolisthesis or subluxation at any level. Small Schmorl node endplate herniations noted at several levels without concern. Small central disc protrusion noted at the T8-T9 level. Negative for acquired central canal or foraminal stenosis at any level of the cervical or visualized thoracic spine. No inflammatory change or abnormal enhancement at the intervertebral disc spaces. Unremarkable epidural and paravertebral soft tissues without evidence for phlegmon or abscess. Small bilateral dependent pleural effusions and proportional atelectasis. IMPRESSION: No evidence for osteomyelitis discitis at the cervical spine or thoracic spine to the T10 level. Please note that the T11 and T12 levels of the thoracic spine are included on the lumbar spine exam of the same date. MTDD
--- NOTE | 2017-08-01 09:26 | PN ---
Progress Note - Progress Note Date of Service: 08/01/17 SOAP: Subjective: CC: fever HPI: 31 year old woman IDU, with fever, myalgia, vision changes; low back pain, pain with movement of legs. No fever, rash, or diarrhea. No new areas of pain. Objective: Vital Signs Temp 37.6 C 08/01/17 07:37 Pulse 96 08/01/17 07:37 Resp 28 08/01/17 08:55 BP 110/56 08/01/17 07:37 Pulse Ox 95 08/01/17 07:37 Intake & Output 07/31/17 08/01/17 08/01/17 18:59 06:59 18:59 Intake Total 800 375 Output Total 1795 Balance 800 -1420 Weight 176 lb Intake: IV Fluids 800 lr 800 Oral 0 375 Output: [place] 1795 Other: # Bowel Movements 0 Gen:awake, uncomfortable, tearful Neuro: oriented x3, R sided visual field cuts, strength 5/5 quad/TA/gastroc BL, no LE clonus BL HEENT: no conj hemorrhage Heart:regular no murmur Lungs:CTA BL Abd:+BS NTND soft Skin: erythematous/purple papules on fingertips and toes, no other rash MSK: L spine tender Laboratory Results - last 24 hr 07/30/17 07/30/17 07/30/17 01:40 06:35 13:00 WBC RBC Hgb Hct MCV MCH MCHC RDW Plt Count MPV Neut % (Auto) Lymph % (Auto) Terry % (Auto) Eos % (Auto) Baso % (Auto) Absolute Neuts (auto) Absolute Lymphs (auto) Absolute Monos (auto) Absolute Eos (auto) Absolute Basos (auto) Absolute Nucleated RBC Immature Gran % Neutrophils % Band Neutrophils % Lymphocytes % Reactive Lymphs % Monocytes % Metamyelocytes % Nucleated RBC % Abs Neuts (Manual) Abs Lymphs (Manual) Abs Monocytes (Manual) Absolute Eos (Manual) Abs Basophils (Manual) Normal RBC Morphology ESR Hem Pathologist Commnt Sodium 128 L Potassium 3.1 L Chloride 98 L Carbon Dioxide 19 L Anion Gap 11 BUN 7 Creatinine 0.44 L Est GFR ( Amer) 214.5 Est GFR (Non-Af Amer) 166.8 BUN/Creatinine Ratio 15.9 Glucose 118 H Lactic Acid 0.9 Calcium 8.1 L Troponin I 0.07 H* C-Reactive Protein 242.16 H Procalcitonin 0.9 H Beta HCG, Quant 2.01 07/30/17 07/31/17 07/31/17 13:00 05:35 05:35 WBC 7.8 10.9 H RBC 3.70 L 3.51 L Hgb 10.2 L 9.7 L Hct 30 L 29 L MCV 82 82 MCH 28 28 MCHC 34 34 RDW 15 15 Plt Count 92 L D 164 MPV 9 8 Neut % (Auto) 96.2 H Not Reportable Lymph % (Auto) 2.3 L Not Reportable Terry % (Auto) 0.9 L Not Reportable Eos % (Auto) 0.3 Not Reportable Baso % (Auto) 0.3 Not Reportable Absolute Neuts (auto) 7.6 Not Reportable Absolute Lymphs (auto) 0.2 L Not Reportable Absolute Monos (auto) 0.1 Not Reportable Absolute Eos (auto) 0 Not Reportable Absolute Basos (auto) 0 Not Reportable Absolute Nucleated RBC 0 Not Reportable Immature Gran % 2 Neutrophils % 82 Band Neutrophils % 1 Lymphocytes % 5 L Reactive Lymphs % 1 Monocytes % 10 Metamyelocytes % 1 Nucleated RBC % 0 Not Reportable Abs Neuts (Manual) 9.2 H Abs Lymphs (Manual) 0.5 L Abs Monocytes (Manual) 1.1 H Absolute Eos (Manual) 0 Abs Basophils (Manual) 0 Normal RBC Morphology Not Reportable ESR 30 H Hem Pathologist Commnt Sodium 131 L Potassium 2.9 L Chloride 101 Carbon Dioxide 23 Anion Gap 7 BUN 7 Creatinine 0.54 Est GFR ( Amer) 169.3 Est GFR (Non-Af Amer) 131.7 BUN/Creatinine Ratio 13.0 Glucose 124 H Lactic Acid Calcium 8.1 L Troponin I C-Reactive Protein Procalcitonin Beta HCG, Quant Assessment: 1. MRSA bacteremia with infective endocarditis (TTE negative, Janeway lesions, [employer] emboli) 2. L5/S1 epidural phlegmon 3. Multiple [employer] emboli, some progressed to small abscesses and hemorrhage 4. 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 PCN allergy Plan: 1. cotninue vancomycin goal tr 15-20, recheck BC 08/01 pending 2. TORITO pending for today to assess for vegetation; if significant vegetation still present and further emboli, would need evaluation for cardiac surgery. I discussed this with her aunt and grandmother and we discussed that in the setting of injection drug use, avoiding a valve replacement would be best for her as it would increase the risk of subsequent episodes of endocarditis, cardiac abscess, valve dehiscence, and . 3.Neurosurgery consultation for question of drainage of any of the [employer] emboli that seem to have progressed to abscess, discussed with Dr. Pink who has agreed to see her today. 4. follow low back symptoms, will add NSAIDs, tylenol, consider re-imaging if LE deficits develop Discussed with Silvano PUENTES
[2017-08-01] MEDS: Ibuprofen TAB* 400 MG PO SCH ×3 (10:23→22:15)
[2017-08-01] MEDS: Potassium Chlor TAB* 20 MEQ TAB.ER PO SCH (10:23)
[2017-08-01] MEDS ORDERED: Midazolam* 1 MG/ML 10 ML VIAL (10 MG) ONE (11:51)
[2017-08-01] MEDS ORDERED: fentaNYL* 50 MCG/ML 2 ML VIAL (100 MCG VIAL) ONE ×2 (11:51→11:56)
[2017-08-01] MEDS ORDERED: Naloxone* 0.4 MG/ML 1 ML VIAL ONE (11:51)
[2017-08-01] MEDS ORDERED: Flumazenil* 0.1 MG/ML 5 ML MDV ONE (11:52)
[2017-08-01] MEDS ORDERED: Lidocaine 2% VISCOUS* 15 ML UDC ONE (11:52)
[2017-08-01 14:09] LABS: ABS Basophils 0.1 10^3/ul (0-0.2); ABS Eosinophils 0.1 10^3/ul (0-0.6); ABS Lymphocytes 1.3 10^3/ul (1.0-4.8); ABS Monocytes 0.8 10^3/ul (0-0.8); ABS Neutrophils 7.9 10^3/ul (1.5-7.7); ABS Nucleated RBC 0 10^3/ul; Eosinophil % 0.7 % (0-6); Hematocrit 28 % (35-47); Hemoglobin 9.3 g/dl (12.0-16.0); Lymphocyte % 13.1 % (25-47); Mean Corpuscular HGB Conc 34 g/dl (31-36); Mean Corpuscular Hemoglobin 28 pg (27-31); Mean Corpuscular Volume 82 fL (80-97); Mean Platelet Volume 8 um3 (7.4-10.4); Nucleated Red Blood Cells % 0; Platelet Count 188 10^3/ul (150-450); Red Blood Count 3.34 10^6/ul (4.0-5.4); Red Cell Distribution Width 16 % (10.5-15); White Blood Count 10.1 10^3/ul (3.5-10.8)
[2017-08-01 14:23] LABS: EGFR Non-African American 180.9 (>60)
[2017-08-01] MEDS ORDERED: Magnesium Sulfate 2 GM IV* 2 GM/50 ML BAG IVPB ONE (14:47)
--- NOTE | 2017-08-01 15:56 | TEE ---
Patient: CATALINA NEGRON [facility] Rec#: [id number] : 1985 Date: 08/01/2017 Age: 31y Height: 167.6 cm / 66.0 in Weight: 86.2 kg / 190.0 lbs Sex: F BSA: 2 Room#: [facility] Admit Date#: 07/30/2017 Type: Inpatient Referring: Malachi Segovia MD Performing: Kiok Carroll MD Reading: Kiko Carroll MD Employment Director: Jessy Darby RN RD Nurse: Lamar Alexandra Nurse: Maggie Graham RN Transesophageal Echocardiogram Indication: MRSA bacteremia, endocarditis with septic emboli BP: 101/68 HR: 101 Rhythm: NSR Findings History: IV heroin use, smoker, obesity. Technical Comments: The study quality is good. Note; ability to administer sedation limited by patient's relative hypotension and patient was somewhat combative during this study with underlying high tolerance suspected. Study still felt diagnostic given history of IVDA. Left Ventricle: The left ventricular chamber size is normal. Global left ventricular wall motion and contractility are within normal limits. There is normal left ventricular systolic function. The estimated ejection fraction is 50-55%. Left Atrium: The left atrial chamber size is normal. There is no thrombus visualized in the left atrial appendage. Right Ventricle: The right ventricular chamber size and systolic function are within normal limits. Right Atrium: The right atrial cavity size is normal. The bubble study is negative. A patent foramen ovale is not demonstrated with color Doppler and agitated contrast. Aortic Valve: The aortic valve is trileaflet. The aortic valve leaflets are mildly thickened. There is a trace of aortic regurgitation. There is no evidence of aortic stenosis. A mass is visualized on the aortic valve which appears consistent with a vegetation. A mobile echodense lesion is seen on the left coronary cusp, predominantly on the LV side of the valve. It measures 0.8 cm x 0.9 cm in short axis and 1.0 cm x 1.3 cm in long axis. Mitral Valve: The mitral valve leaflets are mildly thickened. There is mild to moderate mitral regurgitation. No vegetation is observed on the mitral valve. Tricuspid Valve: The tricuspid valve leaflets are normal. There is trace to mild tricuspid regurgitation.No convincing vegetation seen on the tricuspid valve however the valve does appear a bit thickened. Unable to estimate the right ventricular systolic pressure. Pulmonic Valve: The pulmonic valve structure is not well visualized. There is no evidence of pulmonic regurgitation. Pericardium: There is no significant pericardial effusion. Aorta: There is no dilatation of the ascending aorta. There is no dilation of the aortic root. There is minimal atherosclerotic plaque seen in the aorta. Pulmonary Artery: The main pulmonary artery appears normal. Venous: The bicaval view was obtained and appears normal. The pulmonary veins appear normal. 3 of 4 pulmonary veins are seen. There is no systolic flow reversal seen. TORITO Procedures: All standard views were attempted within the limitations of patient tolerance and safety. History and physical as well as labs were reviewed. The patient was in a fasting state. Risks and benefits of the procedure, including alternatives, were discussed and written informed consent was obtained. The patient and/or their health care sales service representative expressed understanding of the procedure, risks and benefits. Baseline and continuous monitoring of blood pressure, heart rate, pulse oximetry and heart rhythm was performed throughout the procedure. The appropriate time-out procedure was performed as per [facility] protocol. The patient was placed in the left lateral decubitus position. The patient's posterior pharynx was anesthetized with 20ml of 2% viscous lidocaine. The patient received IV Midazolam with a total dose of 3 mg. The patient received IV Fentanyl with a total dose of 50 mcg. An oral bite block was inserted for protection of oral dentition. The multiplane transesophageal echocardiogram probe was inserted through the posterior oropharynx and advanced into the esophagus without difficulty. Multiple 2D images were obtained of the heart and its related structures. Color flow Doppler was used for evaluation. Spectral Doppler was also used. The atrial septum was interrogated with color flow Doppler. At the conclusion of the procedure the probe was removed with continuous suction without complications. The patient tolerated the procedure with no apparent complications. Contrast: Normal saline was used as contrast for the bubble study. Image 58. Conclusions There is normal left ventricular systolic function. The estimated ejection fraction is 50-55%. Global left ventricular wall motion and contractility are within normal limits. A mobile echodense mass is seen on the left coronary cusp of the aortic valve, predominantly on the LV side of the valve. It measures 0.8 cm x 0.9 cm in short axis and 1.0 cm x 1.3 cm in long axis. There is a trace of aortic regurgitation. There is mild to moderate mitral regurgitation. There is trace to mild tricuspid regurgitation. No convincing vegetation seen on the tricuspid valve however the tricuspid valve does appear a bit thickened. There is no prior transesophageal echocardiogram available to compare with at this time. Measurements Name Value Normal Range Aortic Annulus 2.1 cm (1.4 - 2.6) Ao root diameter (2D) 2.6 cm (2.1 - 3.5) Ascending Ao 2.4 cm (2.1 - 3.4)
[2017-08-01] MEDS: NS 0.9% 1000 ML* 1,000 ML IV SCH (17:19)
[2017-08-01] MEDS ORDERED: Nicotine Inhaler* 10 MG AMP INH PRN (18:05)
[2017-08-01] MEDS ORDERED: Mouth Piece, Nicotine* 1 EACH CARTRIDGE INH PRN ×2 (18:05)
--- NOTE | 2017-08-01 18:19 | PN ---
Subjective Date of Service: 08/01/17 Interval History: Patient complains of pain in her back and legs that is not increased from previous days. Patient denies any new visual deficits. Patient denies any new weakness or other neurological deficits that she can identify. Patient is having significant rigors. Patient is very anxious about her clinical condition and becomes tearful frequently. Patient and family had questions about plan of care which were answered to their satisfaction. Patient denies N/V, abdominal pain, dysuria, CP, SOB, or other pain. Family History: Unchanged from Admission Social History: Unchanged from Admission Past Medical History: Unchanged from Admission Objective Active Medications: Acetaminophen (Tylenol Tab*) 650 mg PO Q6H PRN PRN Reason: FEVER/PAIN Last Admin: 07/31/17 05:27 Dose: 650 mg Albuterol (Ventolin 2.5 Mg/3 Ml Neb.Serena*) 2.5 mg INH Q2H PRN PRN Reason: SOB/WHEEZING Device (Nicotine Mouth Piece*) 1 each INH .USE WITH NICOTROL PRN PRN Reason: CRAVING Device (Nicotine Mouth Piece*) 1 each INH .USE WITH NICOTROL PRN PRN Reason: CRAVING Heparin Sodium (Porcine) (Heparin Vial(*)) 5,000 units SUBCUT Q8HR [facility] Last Admin: 08/01/17 14:50 Dose: 5,000 units Heparin Sodium (Porcine) (Heparin Flush Picc/Ml/Cvc(*)) 1 - 3 ml FLUSH 0600, 1800 [facility] PRN Reason: Protocol Last Admin: 08/01/17 06:01 Dose: 1 ml Hydromorphone HCl (Dilaudid Inj*) 1 mg IV SLOW PU Q1H PRN PRN Reason: PAIN Last Admin: 08/01/17 17:14 Dose: 1 mg Vancomycin HCl 1,000 mg/ (Sodium Chloride) 250 mls @ 166.667 mls/hr IVPB Q8H [facility] Last Admin: 08/01/17 14:52 Dose: 166.667 mls/hr Sodium Chloride (Ns 0.9% 1000 Ml*) 1,000 mls @ 75 mls/hr IV PER RATE [facility] Last Admin: 08/01/17 17:19 Dose: 75 mls/hr Ibuprofen (Motrin Tab*) 400 mg PO Q6H [facility] Stop: 08/02/17 04:01 Last Admin: 08/01/17 16:15 Dose: 400 mg Lorazepam (Ativan Inj*) 1 mg IV PUSH Q4HR PRN PRN Reason: ANXIETY Last Admin: 08/01/17 08:55 Dose: 1 mg Nicotine (Nicotine Patch 7 Mg/24 Hr*) 1 patch TRANSDERM DAILY [facility] Last Admin: 08/01/17 09:12 Dose: 1 patch Nicotine (Nicotine Inhaler*) 10 mg INH Q2H PRN PRN Reason: CRAVING Ondansetron HCl (Zofran Inj*) 4 mg IV Q6H PRN PRN Reason: NAUSEA Oxycodone/Acetaminophen (Percocet 5/325 Tab*) 1 tab PO Q6H PRN PRN Reason: PAIN Last Admin: 08/01/17 06:17 Dose: 1 tab Pharmacy Consult (Vancomycin Per Pharmacy*) 1 note FOLLOW UP .VANC PER PHARMACY [facility] Pharmacy Profile Note (Nicotine Patch Removal Note*) 1 note FOLLOW UP 0600 [facility] Last Admin: 08/01/17 06:18 Dose: 1 note Pharmacy Profile Note (Vancomycin Trough Check) 1 note FOLLOW UP 0600 [facility] Stop: 08/03/17 06:01 Vital Signs - 8 hr 08/01/17 08/01/17 08/01/17 10:22 11:34 11:40 Temperature 98.8 F Pulse Rate 95 Respiratory 28 32 32 Rate Blood Pressure 112/64 (mmHg) O2 Sat by Pulse 97 Oximetry 08/01/17 08/01/17 08/01/17 14:53 16:09 16:10 Temperature 98.6 F Pulse Rate 110 Respiratory 32 20 20 Rate Blood Pressure 127/78 (mmHg) O2 Sat by Pulse 100 Oximetry 08/01/17 17:14 Temperature Pulse Rate Respiratory 18 Rate Blood Pressure (mmHg) O2 Sat by Pulse Oximetry Oxygen Devices in Use Now: None Appearance: Patient is a 31yo female who appears stated age and is sitting in the bed with body shaking rigors. Eyes: No Scleral Icterus, PERRLA Ears/Nose/Mouth/Throat: Clear Oropharnyx, Mucous Membranes Moist, - - Dental decay primarily located between front teeth. Neck: NL Appearance and Movements; NL JVP, Trachea Midline Respiratory: Symmetrical Chest Expansion and Respiratory Effort, Clear to Auscultation Cardiovascular: NL Sounds; No Murmurs; No JVD, RRR, No Edema Abdominal: NL Sounds; No Tenderness; No Distention, No Hepatosplenomegaly Lymphatic: No Cervical Adenopathy Extremities: No Edema, No Clubbing, Cyanosis Skin: - - Tender papules on soles of feet and necrotic papules widespread on body. No other rash. Neurological: Alert and Oriented x 3, NL Sensation, NL Muscle Strength and Tone , - - SLR+ on B/L LE. Possible left homonymous quadrantanopia on exam, patient has a hard time cooperating with exam. CN II-XII otherwise intact. Reflexes 2+ B /L in biceps, patellar and achilles areas, Babinski's downgoing b/l. Result Diagrams: 08/01/17 14:00 08/01/17 14:00 Additional Lab and Data: Lab Results Microbiology and Other Data: Microbiology 07/30/17 17:30 Aerobic Blood Culture - Final Blood Venous MRSA Anaerobic Blood Culture - Final MRSA 07/30/17 13:00 Aerobic Blood Culture - Final Blood Venous MRSA Anaerobic Blood Culture - Final MRSA Blood MRSA/MSSA (PCR) - Final Mrsa Positive S.aureus Positive 07/30/17 06:17 Urine Culture - Final Urine No Growth (<1,000 CFU/mL) 07/30/17 06:17 Nasal Screen MRSA (PCR)([facility]YLOR) - Final Nasal Mrsa Negative Assess/Plan/Problems-Billing Assessment: Patient is a 31yo female with a PMH significant for IVDA who is admitted with MRSA endocarditis with septic brain abscesses, possible discitis, and bacteremia who is going to be transferred for possible aortic valve replacement. - Patient Problems (1) MRSA bacteremia Current Visit: Yes Status: Acute Code(s): R78.81 - BACTEREMIA SNOMED Code( s): 74925564152888248 Comment: Appreciate ID input. Patient has MRSA on 4/4 blood cultures from admission. Repeat cultures pending. On Vancomycin. Has shaking rigors and tachycardia but is hemodynamically stable. Continue fluids. (2) Endocarditis Current Visit: Yes Status: Acute Code(s): I38 - ENDOCARDITIS, VALVE UNSPECIFIED SNOMED Code(s): 23460722 Comment: Patient has a 1cmx1.3cm vegetation on the left coronary cusp of the aortic valve on TORITO with mild AR. Patient also has mild to moderate MR. Appreciate ID input. Plan to transfer for possible aortic valve replacement. (3) Cerebral abscess (embolic) Current Visit: Yes Status: Acute Code(s): G06.0 - INTRACRANIAL ABSCESS AND GRANULOMA SNOMED Code(s): 67688975 Comment: Appreciate neurosurgical input. Several foci in brain on MRI none greater than 1.3cm. Several Hemorrhagic foci. Not absolute contraindication to bypass per neurosurgery. No need for stereotactic drainage of abscesses at this point. Conservative treatment, repeat MRI in 5 days. (4) Discitis Current Visit: Yes Status: Acute Code(s): M46.40 - DISCITIS, UNSPECIFIED, SITE UNSPECIFIED SNOMED Code(s): 6732667 Comment: Appreciate neurosurgical input. Probable discitis at L5-S1. TLSO when out of bed. Conservative treatment at this point. No need for drainage or stabilization at this time. Repeat MRI. (5) DVT prophylaxis Current Visit: Yes Status: Acute Code(s): EIH2459 - SNOMED Code(s): 474211401 Comment: Subcutaneous heparin. (6) Full code status Current Visit: Yes Status: Acute Code(s): Z78.9 - OTHER SPECIFIED HEALTH STATUS SNOMED Code(s): 305021031 Status and Disposition: Patient is admitted inpatient. [facility]. Also on waiting list at [place] cardiothoracic surgery says they are not optimally equipped to handle this case.
--- NOTE | 2017-08-01 22:34 | CONS ---
CONSULTATION NOTE: DATE OF CONSULT: 08/01/17 HISTORY OF PRESENT ILLNESS: The patient is a very pleasant 31-year-old female with history of IV drug abuse including heroin, who was admitted to the hospital with encephalopathy and back pain. Requested to see the patient by Dr. Mathur regarding MRI findings consistent with multiple cerebral abscesses and possible L5-S1 phlegmon. The patient was diagnosed with bacterial endocarditis with bilateral feet septic emboli. The patient is a poor historian. She reports that she has been having pain at the back with difficulty with her vision. She reports that she had difficulty with right side vision approximately 12 days ago prior to her admission when she last had use of heroin. The patient denies any nausea or vomiting. Denies any headache. Denies any history of seizure. Denies any weakness of extremities. Denies any numbness or tingling. Denies any urinary or GI incontinence. Perineal sensation intact. The patient is currently on vancomycin. History was obtained from the patient and the patient's chart as well as her aunt who is in the bedside. PAST MEDICAL HISTORY: Heroin abuse. PAST SURGICAL HISTORY: . MEDICATIONS: The patient was on ibuprofen, Flexeril, and Macrobid prior to admission. ALLERGIES: PENICILLIN. FAMILY HISTORY: Mother with history of esophageal cancer. Father, heart problems. SOCIAL HISTORY: Tobacco, positive. Alcohol, occasionally. Recreational use, positive for marijuana and heroin. PHYSICAL EXAM: The patient is not in acute distress. She is awake, alert, oriented x3. Her pupils are equal and reactive. Cranial nerves II through XII grossly intact with questionable right lower quadrantanopia. Motor 4 to 5/5 in all extremities, possible antalgic. No pronator drift. Sensory is grossly intact to light touch. Deep tendon reflexes +1 bilaterally. No clonus. No Babinski. Melendez's negative. No tenderness to palpation of the thoracic and lumbar spine. She has full range of motion of cervical spine. No neck stiffness. DIAGNOSTIC STUDIES/LAB DATA: The patient had an MRI of the brain revealing multiple foci of big enhancing lesions with restricted diffusion with largest areas in her occipital lobes. Largest diameter is less than 1.3 cm. The patient has MRI of her lumbar spine revealing L5-S1 degenerative disk disease with disk protrusion and possible diskitis and/or epidural phlegmon. ASSESSMENT: The patient is a very pleasant 31-year-old female with complaints of vision loss, back pain and MRI findings consistent with multiple cerebral abscesses as well as L5-S1 degenerative disk disease and possible epidural phlegmon. PLAN: The patient at this point is treated with IV antibiotics for her bacterial endocarditis. She has blood cultures positive for MRSA. Her white count is 15,000 and her CRP is 305. At this point, we would recommend conservative treatment with antibiotic based on the location and the size of the lesions at her brain. In terms of her lumbar spine, we will recommend bracing and antibiotic treatment. We discussed with the patient the possibility or need for surgical drainage of her cerebral abscesses and possible instrumentation of her lumbar spine if she is not able to be respond to antibiotics. At this point, the patient is scheduled to be transferred for possibly cardiac surgery for endocarditis. We will be happy to follow the patient with you. Thank you very much for allowing us to participate in the care of this patient. Please do not hesitate to contact our office in case if you have any further questions or concerns regarding the care of this patient. Patience Paez MD [id number]/[facility] #: [id number] ALEKSANDER
[2017-08-02] MEDS: oxyCODONE/Acetamin 5/325 MG* TAB PO PRN ×2 (00:19→12:58)
[2017-08-02] MEDS: HYDROmorphone INJ* 2 MG/ML CARPUJECT SYRINGE IV SLOW PU PRN ×8 (01:51→15:03)
[2017-08-02] MEDS: Ibuprofen TAB* 400 MG PO SCH (04:27)
[2017-08-02] MEDS: Heparin VIAL(*) 5000 UNITS/ML VIAL (FIVE THOUSAND) SUBCUT SCH ×2 (06:26→15:27)
[2017-08-02] MEDS: Vancomycin(*) 1,000 MG in NS 0.9% 250 ML* 250 ML IVPB SCH ×2 (06:48→13:03)
[2017-08-02] MEDS: Nicotine Patch Removal NOTE FOLLOW UP SCH (07:50)
[2017-08-02] MEDS: Nicotine PATCH 7 MG/24 HR* PATCH TRANSDERM SCH (09:13)
[2017-08-02] MEDS: LORazepam INJ* 2 MG/ML 1 ML VIAL IV PUSH PRN ×2 (10:18→15:20)
[2017-08-02 11:46] LABS: ABS Basophils 0.1 10^3/ul (0-0.2); ABS Eosinophils 0.1 10^3/ul (0-0.6); ABS Lymphocytes 1.4 10^3/ul (1.0-4.8); ABS Monocytes 0.7 10^3/ul (0-0.8); ABS Neutrophils 8.1 10^3/ul (1.5-7.7); ABS Nucleated RBC 0 10^3/ul; Eosinophil % 0.9 % (0-6); Hematocrit 29 % (35-47); Hemoglobin 9.8 g/dl (12.0-16.0); Lymphocyte % 13.1 % (25-47); Mean Corpuscular HGB Conc 34 g/dl (31-36); Mean Corpuscular Hemoglobin 28 pg (27-31); Mean Corpuscular Volume 83 fL (80-97); Mean Platelet Volume 8 um3 (7.4-10.4); Nucleated Red Blood Cells % 0.1; Platelet Count 219 10^3/ul (150-450); Red Cell Distribution Width 15 % (10.5-15); White Blood Count 10.4 10^3/ul (3.5-10.8)
[2017-08-02 12:11] LABS: EGFR Non-African American 171.3 (>60)
[2017-08-02] MEDS: NS 0.9% 1000 ML* 1,000 ML IV SCH (13:02)
[2017-08-02] MEDS ORDERED: Magnesium Sulfate 2 GM IV* 2 GM/50 ML BAG IVPB ONE (13:07)
[2017-08-02 13:45] VITALS: BP 105/63
--- NOTE | 2017-08-02 15:52 | PN ---
Progress Note - Progress Note Date of Service: 08/02/17 SOAP: Subjective: []No events ON. No vision changes. Oropeza. Patient again denies GI incontinence. Perineal sensation intact. Objective: [] VSS afebrile AAOx3 JORGE, CN III-XII grossly intact. Motor 4-5/5 all extremities Sensation grossly intact to light touch. Assessment: []31 yof Hx IV drugs abuse, bacterial endocarditis, cerebral abscesses, L5-S1 possible discitis Plan: [] Monitor VS, Neurochecks Patient is scheduled to be transferred to [facility] for heart surgery. Notified NS team in [facility]. Patience Paez MD
--- NOTE | 2017-08-02 18:00 | TRS ---
TRANSFER SUMMARY: DATE OF ADMISSION: 07/30/17 DATE OF TRANSFER: 08/02/17 PRIMARY CARE PROVIDER: None. MY ATTENDING WHILE IN THE HOSPITAL: Dr. Betzy Yusuf.* (DICTATED BY DHAVAL VEE) CONSULTING PROVIDERS: 1. Dr. Bryce Paez of Neurosurgery. 2. Dr. Chau Mathur of Infectious Disease. PRIMARY DISCHARGE DIAGNOSES: 1. Infective endocarditis due to methicillin-resistant Staphylococcus aureus. 2. Cerebral abscesses due to septic emboli. 3. Intravenous drug abuse. 4. Hepatitis C antibody positive. 5. Probable infectious diskitis of the lumbar spine with possible phlegmon. SECONDARY DISCHARGE DIAGNOSIS: Intravenous drug abuse. STUDIES DONE WHILE IN THE HOSPITAL: Chest x-ray, from 07/30/17, read as: No radiographic evidence for acute cardiopulmonary abnormality. Electrocardiogram, from 07/30/17, shows: Sinus tachycardia, left ventricular hypertrophy, no ST-segment changes, poor quality study. QTc of 447, single PAC , no other abnormalities. Brain CT, from 07/30/17, read as: Normal CT of the brain. Brain MRI, from 08/01/17, shows: Multiple ring-enhancing lesions with associated restricted diffusion and a couple of at least were hemorrhagic most consistent with abscesses from septic emboli, much less likely metastatic disease. Given the patient's clinical history, recommend continued followup. Transthoracic echocardiogram, from 07/30/17, read as: Slightly technically limited due to the patient's body habitus. Global left ventricular wall motion contractility within normal limits, left ventricular systolic function lower limits of normal, estimated ejection fraction 50% to 55%, right ventricular systolic function low normal, aortic valve leaflets mildly thickened, no aortic stenosis, trace mitral regurgitation, trace tricuspid regurgitation. Unable to estimate left ventricular systolic pressure. Images not clear enough to rule out endocarditis, no significant pericardial effusion. Thoracic spine MRI, from 07/30/17, read as: Limited exam due to motion artifact and absence of IV contrast, there is no evidence of osteomyelitis, diskitis, epidural abscess, or thoracic spinal cord compression. Cervical spine MRI, from 07/31/17, read as: No evidence for osteomyelitis, diskitis of the cervical spine or thoracic spine to the T10 level. Please note that the T11 and T12 of the thoracic spine included lumbar spine exam of same date. Lumbar spine MRI from, 07/31/17, read as: Potential, although not definite inflammatory change in the epidural and paravertebral region of L5-S1 given the clinical context without evidence for loculated abscess collection alternatively , but noted signal abnormalities maybe entirely due to chronic advanced degenerative spondylosis. Correlate with clinical assessment and consider reassessment with MRI in several days if there is consistently high clinical index suspicion. Bilateral small pleural effusions with associated atelectasis , large liver and spleen, negative for hydronephrosis. Transesophageal echocardiogram, from 07/31/17, read as: There is normal left ventricular systolic function, estimated ejection fraction 50% to 55%, global left ventricular wall motion contractility within normal limits. A mobile echodense mass is seen in the left coronary cusp of the aortic valve predominantly in the left ventricular side of the valve and measures 0.8 cm x 0.9 cm in the short axis and 1.0 cm x 1.3 cm in the long axis. There is trace aortic regurgitation, mild-to- moderate mitral regurgitation, there is trace-to- mild tricuspid regurgitation. No convincing vegetation on the tricuspid valve; however, this appear to be thickened. There is no prior transesophageal echocardiogram to compare. MEDICATIONS AT DISCHARGE: 1. Tylenol 650 mg p.o. q.6 hours as needed. 2. Albuterol 2.5 mg inhalation q.2 hours as needed. 3. Heparin flush 1 to 3 mL flush 0600 and 1800 by PICC line. 4. Heparin sodium 5000 units subcutaneous q.8 hours. 5. Dilaudid 1 mg IV q.1 hour as needed for pain. 6. Lorazepam 1 mg IV push q.4 hours as needed for anxiety. 7. Nicotine inhaler 10 mg inhalation q.2 hours as needed. 8. Nicotine patch 7 mg for 24 hours, 1 patch transdermal daily. 9. Zofran 4 mg IV q.4 hours as needed for nausea. 10. Percocet 1 tab p.o. q.6 hours as needed for pain. 11. Vancomycin 1000 mg IV q.8 hours. HOSPITAL COURSE: This is a brief summary of the patient's presentation. For more details, please see the history and physical from Dr. Pj Nance on 07/30/17. In brief, the patient is a 31-year-old female with no known past medical history except for heroin abuse on presentation, who was evaluated and noted to be significantly encephalopathic and was unable to contribute significantly to her history. She had difficulty following requests. The patient had used heroin up to 4 days before. The patient had changes in her vision including loss of central vision and blurring of peripheral vision along with severe headache. The patient denied, however, when asked if anything was wrong, the patient also complained of fevers, chills, and painful lesions on her feet. The patient had no other abnormalities. The patient was admitted to the ICU with suspicion of bacterial endocarditis. The patient had blood cultures drawn and had an echocardiogram and MRI ordered as the above. The patient was given vancomycin, ciprofloxacin, and metronidazole in the emergency department and continued on vancomycin and cefepime, all IV. The patient had Oropeza inserted for fluid monitoring. The patient was not anticoagulated except for subcutaneous heparin due to concern for septic emboli to the brain. The patient was seen by the bench loom weaver on 07/30/17. The patient had no other neurologic deficits beside vision loss and had possible loss of bowel control with significant diarrhea. However, this was difficult to confirm this with the patient. The patient was continued on vancomycin. The patient had positive blood cultures for MRSA. The patient had fever up to 102 and white blood cell count 15.0 on admission. The patient had acidosis on admission, which resolved. The patient was continued on normal saline at 100 an hour. The patient had severe back pain as well when her encephalopathy resolved, which was concerning for vertebral osteo diskitis. The MRIs were obtained as of the patient's encephalopathy improved over this time. The patient was found to have Janeway lesions and Osler nodes on bilateral hands and feet. The patient was checked for HIV and hepatitis C. HIV was nonreactive. Hepatitis C was high reactive. Note, a preliminary test was performed at that time. The patient developed no neurological deficits in this time to several exams. The patient was transferred out of the ICU on 07/31/17. The patient was able to have a transesophageal echocardiogram performed on 06/08, which was read as above. The patient continued to have subjective fevers and rigors without temperature elevation in vital signs. The patient was intermittently tachycardic, but was saturating well on room air. The patient's white blood cell count holding stable around 10. The patient's platelet count was initially down to 92, but read is now 219. The patient's potassium was 3.2 on admission, went down to 2.9, and is now up to 3.4. The patient's creatinine not elevated. The patient's magnesium was at 1.8, was given 2 mg IV, went down to 1.7, has been given another 2 mg IV. The patient has very low albumin at 2.0 and total protein at 5.3. The patient's CRP on admission was 305.22 and decreased to 176.83. On her day of discharge, the patient was amenable to transfer for the possibility of a need for aortic valve replacement due to large vegetation found on transesophageal echocardiogram. The patient is hemodynamically stable at this time. There was no indication for drainage of the intracerebral abscess at this time per Neurosurgery. Neurosurgery also stated that anticoagulation during bypass surgery would not be absolutely contraindicated by the hemorrhagic lesions found on the patient's brain MRI. The patient will be transferred to service of Dr. Carlos Santa at [facility], for the possibility of aortic valve replacement if deemed medically necessary. PHYSICAL EXAMINATION ON DAY OF DISCHARGE: General: The patient is a 31-year- old female who appears older than stated age and sitting in the bed in moderate distress from pain. Vital Signs: At the time of discharge, temperature 98.2, pulse rate 99, respiratory rate 18, oxygen saturation 96% on room air, blood pressure 105/63. HEENT: Head: Normocephalic, atraumatic. Sclerae anicteric. No hemorrhages. No conjunctival injection. Nasal mucosa moist. Oral mucosa moist. The patient has dental decay between her front teeth. The patient has no pharyngeal erythema or exudate. Neck: Supple, nontender. No lymphadenopathy. No carotid bruits auscultated. No tenderness over the cervical spinous processes. Cardiac: Regular rate and rhythm. There is a grade 3/6 holosystolic murmur heard best at the apex, which has worsened since previous exam, likely correlated with [id number] mitral regurgitation on transesophageal echo. No aortic murmur. No other adventitious heart sounds. Pulses 2+ in bilateral radial, dorsalis pedis, and posterior tibialis areas. Respiratory: Clear to auscultation bilaterally. No wheezes, rales, or rhonchi. Good air exchange bilaterally. Abdomen: Soft, nontender, and nondistended. Bowel sounds present, normoactive in all 4 quadrants. No hepatosplenomegaly on exam. Genitourinary: No suprapubic tenderness or CVA tenderness. Oropeza catheter in place. Skin: Clean, dry, and intact. Osler nodes and Janeway lesions as well as several other what appeared to be necrotic lesions scattered over the patient's body and no other rash. Neuro: The patient has cranial nerves II through XII intact. The patient has difficulty with having her visual newsome tested by confrontation due to her inability to concentrate due to anxiety. The patient, however, possibly has a field cut in her right lateral eye, which was not present yesterday. However, yesterday, there was possibility of a left lower homonymous quadrantanopia, which is not present on today's exam. Strength 4/5 in the bilateral upper and lower extremities with no focal weakness. Reflexes 2+ in the bilateral biceps, patellar, and Achilles tendon. Babinski downgoing bilaterally. Sensation intact to light touch in the bilateral upper and lower extremities. Psychiatric : The patient is tearful and anxious, but cooperative. LABORATORY DATA ON DAY OF DISCHARGE: White blood cell count 10.4, red blood cell count 3.5, hemoglobin 9.8, MCV 29, and platelet count of 219. Sodium 135, potassium 3.4, chloride 104, carbon dioxide 22, anion gap 6, BUN 8, creatinine 0.43, glucose 120, calcium 8.0, magnesium 1.7. Bilirubin 0.8, AST 18, ALT 15, alkaline phosphatase 163. CRP 173.83. Total protein 5.3, albumin 2.0, globulin 3.3, albumin globulin ratio 0.6. Other pertinent laboratory data most recent vancomycin trough from 1352 on 07/31/17 was 14.0. Hepatitis B antigen antibody reactive, surface antigen not reactive, surface antibody 139, core antigen not reactive, hepatitis C antibody high reactive. Influenza A and B and HIV 1 and 2 nonreactive. ESR on 07/30/17 was 30. INR on 07/30/17 was 1.12. Troponin I on admission 0.04 increased to 0.07. Beta hCG is quantitative 2.01. Procalcitonin on admission 0.9. DISCHARGE PLAN: The patient will be transferred to [facility] for the possibility of aortic valve replacement if deemed medically necessary by the team. The patient will be followed on the service of Dr. Carlos Santa. The patient was seen by Dr. Paez at [facility] and he will keep his neurosurgery colleagues at [facility] updated on the patient's condition. To this point, the patient should continue on vancomycin 1000 mg p.o. q.8 hours as well as supportive care including pain medication. The patient should have TLSO brace applied and should wear when out of bed. The patient should have a repeat MRI in 4 days from today on 08/06/17 of her brain to assess for increase in the size of her abscesses. The patient should be on neurological checks to assess for new embolization. The patient should have a repeat MRI of her lumbar spine as well to assess for progression of her probable diskitis. This should also occur on 08/06/17. The patient should have a regular unrestricted diet and engage in activity as tolerated. The patient should undergo aortic valve replacement if it is deemed that the benefits would outweigh the risks of worsening hemorrhage in the brain while the patient is on anticoagulation due to bypass. TIME SPENT: Approximately 75 minutes was spent on discharge, 30 of which was spent [id number] with the patient obtaining history and physical and discussing the treatment plan. DHAVAL VEE [id number]/[facility] #: [id number] ALEKSANDER
[2017-08-03] MEDS ORDERED: Vancomycin Trough Check NOTE FOLLOW UP ONE (06:00)
== END 2017-08-02 16:00 | disposition short-term general hospital (02) | DRG 871 ==
LOC: ED 21:01 → ICU 07-30 05:31 → MEDTELE 07-31 11:08
PROVIDERS: ADMIT Hospitalist; ATTEND Internal Medicine
PROC: 02HV33Z Insertion of Infusion Device into Superior Vena Cava, Percutaneous Approach (ICD-10-PCS; principal; 2017-07-30)
PROC: B24BZZ4 Ultrasonography of Heart with Aorta, Transesophageal (ICD-10-PCS; 2017-08-01)
DX: A41.02 Sepsis due to Methicillin resistant Staphylococcus aureus (principal); G93.40 Encephalopathy, unspecified; G93.6 Cerebral edema; I61.9 Nontraumatic intracerebral hemorrhage, unspecified; I33.0 Acute and subacute infective endocarditis; G06.0 Intracranial abscess and granuloma; J90 Pleural effusion, not elsewhere classified; I66.9 Occlusion and stenosis of unspecified cerebral artery; E87.2 Acidosis; M46.36 Infection of intervertebral disc (pyogenic), lumbar region; L02.212 Cutaneous abscess of back [any part, except buttock and flank]; I76 Septic arterial embolism; D69.59 Other secondary thrombocytopenia; F17.210 Nicotine dependence, cigarettes, uncomplicated; F12.90 Cannabis use, unspecified, uncomplicated; H53.421 Scotoma of blind spot area, right eye; R40.2412 Glasgow coma scale score 13-15, at arrival to emergency department; H54.7 Unspecified visual loss; E66.3 Overweight; B95.62 Methicillin resistant Staphylococcus aureus infection as the cause of diseases classified elsewhere; F11.10 Opioid abuse, uncomplicated; B19.20 Unspecified viral hepatitis C without hepatic coma; R00.0 Tachycardia, unspecified; I08.3 Combined rheumatic disorders of mitral, aortic and tricuspid valves; Z79.01 Long term (current) use of anticoagulants; Z80.0 Family history of malignant neoplasm of digestive organs; Z88.0 Allergy status to penicillin; Z72.89 Other problems related to lifestyle; Z82.49 Family history of ischemic heart disease and other diseases of the circulatory system; Z68.30 Body mass index [BMI] 30.0-30.9, adult
CPT/HCPCS: 36415; 70450; 70553; 71045; 72146; 72156; 72157; 72158; 80048; 80053; 80202; 80307; 80320; 80329; 81003; 81015; 83605; 83735; 84145; 84484; 84702; 85025; 85060; 85610; 85652; 85730; 86140; 86703; 86705; 86706; 86803; 87040; 87077; 87086; 87150; 87186; 87205; 87340; 87502; 87641; 93005; 93306; 94760; 96365; 99285; 99406; A9270-GY; A9579; G0480; J0692; J0744; J1170; J1644; J1885; J2060; J2250; J2310; J3010; J3370; J3475; J3480; J3490

== ENCOUNTER 2020-05-20 12:09 | Inpatient (IN) ==
[2020-05-20] MEDS ORDERED: NS 0.9% 1000 ml BAG 1,000 ML IV ONE ×3 (12:16→13:25)
[2020-05-20] MEDS ORDERED: cefTRIAXone 1 gm/50 mL NS BAG 1 GM/50 ML BAG IV ONE (12:17)
[2020-05-20] MEDS ORDERED: Azithromycin IV 500 MG in NS 0.9% 250 ml 250 ML IVPB ONE (12:17)
[2020-05-20] MEDS ORDERED: Azithromycin 500 MG IV - ED ONCE IVPB ONE (12:30)
[2020-05-20] MEDS ORDERED: Vancomycin 1,500 MG in NS 0.9% 250 ml 250 ML IVPB ONE (12:34)
[2020-05-20] MEDS ORDERED: Cefepime 1 GM in Dextrose 1 GM/50 ML BAG IV ONE (12:35)
[2020-05-20 13:29] LABS: INR 1.37 (0.82-1.09)
[2020-05-20 13:34] LABS: Albumin 2.8 g/dL (3.2-5.2); Albumin/Globulin Ratio 0.6 (1-3); BUN/Creatinine Ratio 27.4 (8-20); C Reactive Protein 235.82 mg/L (<8.01); Calcium 9.7 mg/dL (8.6-10.3); EGFR African American 110.4 (>60); EGFR Non-African American 91.3 (>60); Globulin 4.4 g/dL (2-4); Potassium 3.6 mmol/L (3.5-5.0); Total Bilirubin 1.6 mg/dL (0.2-1.0); Total Protein 7.2 g/dL (6.4-8.9)
[2020-05-20 13:41] LABS: Troponin I 0.03 ng/mL (<0.03)
[2020-05-20] MEDS ORDERED: Iohexol 350 (CONTRAST) 500 ML MDV IV ONE (13:42)
[2020-05-20 13:49] LABS: Influenza A Molecular Negative (Negative); Influenza B Molecular Negative (Negative)
[2020-05-20 14:47] LABS: Hematocrit 28 % (35-47); Hemoglobin 9.2 g/dL (12.0-16.0); Mean Corpuscular HGB Conc 33 g/dL (31-36); Mean Corpuscular Hemoglobin 29 pg (27-31); Mean Corpuscular Volume 88 fL (80-97); Mean Platelet Volume 9.6 fL (7.4-10.4); Platelet Count 71 10^3/uL (150-450); Red Blood Count 3.14 10^6 /uL (3.70-4.87); Red Cell Distribution Width 14 % (10-15); White Blood Count 7.8 10^3/uL (3.5-10.8)
[2020-05-20] MEDS ORDERED: Norepinephrine 16MCG/ML IVPRE 4,000 MCG/250 ML BAG IV SCH (15:00)
[2020-05-20 15:57] LABS: ABS Lymphocytes 0.3 10^3/ul (1.0-4.8); ABS Monocytes 0.8 10^3/ul (0-0.8); ABS Neutrophils 6.7 10^3/ul (1.5-7.7); Eosinophil % 0.3 %; Lymphocyte % 3.9 %
[2020-05-20 16:56] LABS: Urine Appearance Cloudy; Urine Bilirubin Negative (Negative); Urine Blood 2+ (Negative); Urine Color Yellow; Urine Glucose Negative (Negative); Urine Ketones Negative (Negative); Urine Nitrite Positive (Negative); Urine Protein Negative (Negative); Urine Specific Gravity 1.029 (1.010-1.030); Urine Urobilinogen Negative (Negative)
[2020-05-20 17:01] LABS: Urine Bacteria 1+ (Absent); Urine Red Blood Cell 1+(3-5/hpf) (Absent); Urine Squamous Epithelial Cell Present (Absent); Urine White Blood Cell 1+(6-10/hpf) (Absent)
[2020-05-20] MEDS ORDERED: Iohexol 300 (CONTRAST) 10 ML SDV IV ONE (18:19)
[2020-05-20] MEDS ORDERED: Lorazepam PYXIS KEY PRN (18:52)
[2020-05-20] MEDS ORDERED: LORazepam 2 mg VIAL 1 ml IV PUSH PRN (18:52)
[2020-05-20] MEDS ORDERED: Vancomycin per Pharmacy 1 EA NOTE FOLLOW UP SCH (19:00)
[2020-05-20 19:51] LABS: Urine Benzodiazepine Screen None Detected (None Detect); Urine Cannabinoids Screen None Detected (None Detect); Urine Opiates Screen None Detected (None Detect)
[2020-05-20] MEDS ORDERED: Potassium Chlor 20 meq TAB.ER PO ONE (20:32)
[2020-05-20] MEDS ORDERED: Enoxaparin 80 MG/0.8 ML SYR SUBCUT SCH (21:00)
[2020-05-20] MEDS: Cefepime 2 GM in Dextrose 2 GM/50 ML BAG IV SCH (21:25)
[2020-05-20] MEDS: Lactated Ringers 1000 ml BAG 1,000 ML IV ONE (21:26)
[2020-05-20 22:49] LABS: Magnesium 1.6 mg/dL (1.9-2.7)
[2020-05-20] MEDS: Nicotine PATCH 21 MG/24 HR PATCH TRANSDERM SCH (22:53)
[2020-05-20] MEDS: Vancomycin 1,250 MG in NS 0.9% 250 ml 250 ML IVPB SCH (22:53)
[2020-05-20] MEDS ORDERED: Magnesium Sulfate 2 gm BAG 2 GM/50 ML BAG IVPB ONE (23:19)
[2020-05-21] MEDS: Cefepime 2 GM in Dextrose 2 GM/50 ML BAG IV SCH (03:58)
[2020-05-21] MEDS: Vancomycin 1,250 MG in NS 0.9% 250 ml 250 ML IVPB SCH ×4 (05:38→21:40)
[2020-05-21 06:14] LABS: Hematocrit 33 % (35-47); Hemoglobin 10.8 g/dL (12.0-16.0); Mean Corpuscular HGB Conc 33 g/dL (31-36); Mean Corpuscular Hemoglobin 29 pg (27-31); Mean Corpuscular Volume 87 fL (80-97); Mean Platelet Volume 9.8 fL (7.4-10.4); Platelet Count 94 10^3/uL (150-450); Red Blood Count 3.73 10^6 /uL (3.70-4.87); Red Cell Distribution Width 15 % (10-15); White Blood Count 12.4 10^3/uL (3.5-10.8)
[2020-05-21 06:15] LABS: ABS Eosinophils 0.1 10^3/ul (0-0.6); ABS Lymphocytes 0.6 10^3/ul (1.0-4.8); ABS Monocytes 1.3 10^3/ul (0-0.8); ABS Neutrophils 10.4 10^3/ul (1.5-7.7); Eosinophil % 1.1 %; Lymphocyte % 4.5 %
[2020-05-21 06:28] LABS: BUN/Creatinine Ratio 33.3 (8-20); Calcium 8.3 mg/dL (8.6-10.3); EGFR African American 156.4 (>60); EGFR Non-African American 129.2 (>60); Magnesium 1.8 mg/dL (1.9-2.7); Potassium 3.6 mmol/L (3.5-5.0)
[2020-05-21] MEDS ORDERED: Magnesium Sulfate IV 3 GM in NS 0.9% 100 ml BAG 100 ML IVPB ONE (08:10)
[2020-05-21] MEDS: Nicotine PATCH 21 MG/24 HR PATCH TRANSDERM SCH (09:34)
[2020-05-21] MEDS: Nystatin SUSPENSION 100,000 UNITS/ML UDC PO SCH ×4 (10:35→19:38)
[2020-05-21 12:24] LABS: Hepatitis C Antibody Reactive (Negative)
[2020-05-21] MEDS: cefTRIAXone 2 GM ADDV.VIAL 2 GM in NS 0.9% 100 ml BAG 100 ML IV SCH (13:00)
[2020-05-21] MEDS ORDERED: Vancomycin Trough Check NOTE FOLLOW UP ONE (13:30)
[2020-05-21] MEDS ORDERED: Morphine 2 MG/ML SYRINGE ONE (16:40)
[2020-05-21] MEDS: Morphine 2 MG/ML SYRINGE IV ONE ×2 (16:43→17:01)
[2020-05-21] MEDS ORDERED: Morphine ORAL.SOLN 10 mg 2 mg/ml UDC 5 ml (10 mg) ONE (16:55)
[2020-05-22] MEDS: Morphine ORAL CONCENTRATE 5 MG/0.25 ML ORAL.SYRIN PO ONE ×2 (01:39→04:23)
[2020-05-22] MEDS: Vancomycin 1,250 MG in NS 0.9% 250 ml 250 ML IVPB SCH ×2 (04:23)
[2020-05-22] MEDS ORDERED: Morphine ORAL CONCENTRATE 5 MG/0.25 ML ORAL.SYRIN PO ONE (04:25)
[2020-05-22] MEDS: Lactated Ringers 1000 ml BAG 1,000 ML IV ONE (04:49)
[2020-05-22 05:00] LABS: ABS Lymphocytes 0.9 10^3/ul (1.0-4.8); ABS Neutrophils 11.1 10^3/ul (1.5-7.7); Eosinophil % 0.3 %; Hematocrit 30 % (35-47); Hemoglobin 9.9 g/dL (12.0-16.0); Lymphocyte % 6.9 %; Mean Corpuscular HGB Conc 33 g/dL (31-36); Mean Corpuscular Hemoglobin 29 pg (27-31); Mean Corpuscular Volume 88 fL (80-97); Mean Platelet Volume 9.4 fL (7.4-10.4); Platelet Count 123 10^3/uL (150-450); Red Blood Count 3.41 10^6 /uL (3.70-4.87); Red Cell Distribution Width 15 % (10-15); White Blood Count 13.1 10^3/uL (3.5-10.8)
[2020-05-22 05:16] LABS: BUN/Creatinine Ratio 25.5 (8-20); C Reactive Protein 140.45 mg/L (<8.01); Calcium 8.3 mg/dL (8.6-10.3); EGFR African American 153.1 (>60); EGFR Non-African American 126.5 (>60); Potassium 3.6 mmol/L (3.5-5.0)
[2020-05-22 08:45] LABS: HIV 4th Generation Nonreactive (Nonreactive)
[2020-05-22] MEDS: Nicotine PATCH 21 MG/24 HR PATCH TRANSDERM SCH (08:58)
[2020-05-22] MEDS: Nystatin SUSPENSION 100,000 UNITS/ML UDC PO SCH ×4 (08:59→20:51)
[2020-05-22] MEDS ORDERED: Gentamicin ADULT per pharmacy 1 NOTE MISC FOLLOW UP PRN (11:07)
[2020-05-22] MEDS: cefTRIAXone 2 GM ADDV.VIAL 2 GM in NS 0.9% 100 ml BAG 100 ML IV SCH (11:18)
[2020-05-22] MEDS: GENTAMICIN ADULT IVPB SCH ×2 (12:06→20:51)
[2020-05-22] MEDS: NS 0.9% IVPB SCH ×2 (12:06→20:51)
[2020-05-23] MEDS: GENTAMICIN ADULT IVPB SCH ×2 (03:27→13:24)
[2020-05-23] MEDS: NS 0.9% IVPB SCH ×2 (03:27→13:24)
[2020-05-23 04:35] LABS: Hematocrit 29 % (35-47); Hemoglobin 9.7 g/dL (12.0-16.0); Mean Corpuscular HGB Conc 33 g/dL (31-36); Mean Corpuscular Hemoglobin 29 pg (27-31); Mean Corpuscular Volume 87 fL (80-97); Mean Platelet Volume 8.5 fL (7.4-10.4); Platelet Count 172 10^3/uL (150-450); Red Blood Count 3.34 10^6 /uL (3.70-4.87); Red Cell Distribution Width 15 % (10-15); White Blood Count 12.1 10^3/uL (3.5-10.8)
[2020-05-23 04:50] LABS: BUN/Creatinine Ratio 20.7 (8-20); C Reactive Protein 141.47 mg/L (<8.01); Magnesium 1.5 mg/dL (1.9-2.7); Potassium 4.2 mmol/L (3.5-5.0)
[2020-05-23 04:56] LABS: ABS Basophils 0.1 10^3/ul (0-0.2); ABS Lymphocytes 1.1 10^3/ul (1.0-4.8); ABS Monocytes 0.8 10^3/ul (0-0.8); Eosinophil % 0.2 %; Lymphocyte % 9.5 %
[2020-05-23] MEDS ORDERED: Magnesium Sulfate IV 3 GM in NS 0.9% 100 ml BAG 100 ML IVPB ONE (07:30)
[2020-05-23] MEDS: Nicotine PATCH 21 MG/24 HR PATCH TRANSDERM SCH (08:23)
[2020-05-23] MEDS: Nystatin SUSPENSION 100,000 UNITS/ML UDC PO SCH ×4 (08:24→20:30)
[2020-05-23] MEDS: cefTRIAXone 2 GM ADDV.VIAL 2 GM in NS 0.9% 100 ml BAG 100 ML IV SCH (12:06)
[2020-05-23] MEDS ORDERED: Gentamicin PEAK LEVEL FOLLOW UP ONE (13:00)
[2020-05-24 05:40] LABS: ABS Basophils 0.1 10^3/ul (0-0.2); ABS Eosinophils 0.1 10^3/ul (0-0.6); ABS Lymphocytes 1.2 10^3/ul (1.0-4.8); ABS Monocytes 0.7 10^3/ul (0-0.8); Eosinophil % 0.5 %; Hematocrit 27 % (35-47); Hemoglobin 8.8 g/dL (12.0-16.0); Mean Corpuscular HGB Conc 33 g/dL (31-36); Mean Corpuscular Hemoglobin 29 pg (27-31); Mean Corpuscular Volume 87 fL (80-97); Mean Platelet Volume 7.9 fL (7.4-10.4); Platelet Count 195 10^3/uL (150-450); Red Blood Count 3.05 10^6 /uL (3.70-4.87); Red Cell Distribution Width 14 % (10-15); White Blood Count 11.1 10^3/uL (3.5-10.8)
[2020-05-24 05:58] LABS: BUN/Creatinine Ratio 22.6 (8-20); C Reactive Protein 130.92 mg/L (<8.01); Calcium 7.7 mg/dL (8.6-10.3); EGFR African American 159.8 (>60); EGFR Non-African American 132.1 (>60); Magnesium 1.7 mg/dL (1.9-2.7); Potassium 4.4 mmol/L (3.5-5.0)
[2020-05-24] MEDS ORDERED: Magnesium Sulfate IV 3 GM in NS 0.9% 100 ml BAG 100 ML IVPB ONE (06:51)
[2020-05-24] MEDS: Nicotine PATCH 21 MG/24 HR PATCH TRANSDERM SCH (09:48)
[2020-05-24] MEDS: Nystatin SUSPENSION 100,000 UNITS/ML UDC PO SCH ×4 (09:50→21:29)
[2020-05-24] MEDS: ceFAZolin 2 GM PREMIX 2 GM/50 ML BAG IVPB SCH ×3 (10:31→23:02)
[2020-05-24 11:55] LABS: HIV 4th Generation Nonreactive (Nonreactive)
[2020-05-25] MEDS: Benzocaine/Menthol LOZ PO PRN ×3 (00:36→18:44)
[2020-05-25 05:05] LABS: ABS Lymphocytes 0.9 10^3/ul (1.0-4.8); ABS Monocytes 0.5 10^3/ul (0-0.8); ABS Neutrophils 8.1 10^3/ul (1.5-7.7); Eosinophil % 0.5 %; Hematocrit 24 % (35-47); Hemoglobin 7.8 g/dL (12.0-16.0); Lymphocyte % 9.7 %; Mean Corpuscular HGB Conc 33 g/dL (31-36); Mean Corpuscular Hemoglobin 29 pg (27-31); Mean Corpuscular Volume 88 fL (80-97); Mean Platelet Volume 7.9 fL (7.4-10.4); Platelet Count 202 10^3/uL (150-450); Red Blood Count 2.69 10^6 /uL (3.70-4.87); Red Cell Distribution Width 15 % (10-15); White Blood Count 9.7 10^3/uL (3.5-10.8)
[2020-05-25 05:31] LABS: BUN/Creatinine Ratio 22.5 (8-20); C Reactive Protein 154.01 mg/L (<8.01); Calcium 7.2 mg/dL (8.6-10.3); EGFR African American 87.9 (>60); EGFR Non-African American 72.6 (>60); Magnesium 2.2 mg/dL (1.9-2.7); Potassium 4.8 mmol/L (3.5-5.0)
[2020-05-25 07:34] LABS: LDH 140 U/L (140-271); Total Iron Binding Capacity 139 mcg/dL (250-450); Transferrin 99 mg/dL (203-362)
[2020-05-25 07:38] LABS: % Iron Saturation 14 % (15-55); Iron < 20 ug/dL (50-212); Unsaturated Iron Binding < 124 ug/dL
[2020-05-25 07:52] LABS: Ferritin 264.4 ng/mL (11-307)
[2020-05-25 07:55] LABS: Folate 11.53 ng/mL (>3.99)
[2020-05-25 07:56] LABS: Vitamin B12 > 1450 pg/mL (180-914)
[2020-05-25] MEDS: ceFAZolin 2 GM PREMIX 2 GM/50 ML BAG IVPB SCH ×3 (08:35→23:47)
[2020-05-25] MEDS: Nicotine PATCH 21 MG/24 HR PATCH TRANSDERM SCH (08:39)
[2020-05-25] MEDS: Nystatin SUSPENSION 100,000 UNITS/ML UDC PO SCH ×5 (09:42→21:25)
[2020-05-25 13:17] LABS: Hematocrit 24 % (35-47); Hemoglobin 8.2 g/dL (12.0-16.0)
[2020-05-25 14:58] LABS: Corrected Retic Count 1.3 % (0.5-1.5); Hematocrit for Retic CNT 24 % (35-47); Immature Retic Fraction 0.65; RBC Retic Count 2.74 10^6/uL (3.70-4.87)
[2020-05-26 05:39] LABS: ABS Basophils 0.1 10^3/ul (0-0.2); ABS Eosinophils 0.1 10^3/ul (0-0.6); ABS Lymphocytes 2.1 10^3/ul (1.0-4.8); ABS Monocytes 0.9 10^3/ul (0-0.8); ABS Neutrophils 12.1 10^3/ul (1.5-7.7); Eosinophil % 0.6 %; Hematocrit 28 % (35-47); Lymphocyte % 13.6 %; Mean Corpuscular HGB Conc 33 g/dL (31-36); Mean Corpuscular Hemoglobin 29 pg (27-31); Mean Corpuscular Volume 89 fL (80-97); Nucleated Red Blood Cells % 0.1; Platelet Count 344 10^3/uL (150-450); Red Blood Count 3.12 10^6 /uL (3.70-4.87); Red Cell Distribution Width 15 % (10-15); White Blood Count 15.2 10^3/uL (3.5-10.8)
[2020-05-26] MEDS ORDERED: Morphine 2 MG/ML SYRINGE IV ONE (05:41)
[2020-05-26] MEDS: ceFAZolin 2 GM PREMIX 2 GM/50 ML BAG IVPB SCH ×3 (07:56→23:28)
[2020-05-26] MEDS: Nystatin SUSPENSION 100,000 UNITS/ML UDC PO SCH ×4 (09:23→20:47)
[2020-05-26] MEDS: Nicotine PATCH 21 MG/24 HR PATCH TRANSDERM SCH (09:23)
[2020-05-26] MEDS ORDERED: LORazepam 2 mg VIAL 1 ml IV PUSH ONE (13:23)
[2020-05-26] MEDS ORDERED: Lorazepam PYXIS KEY PRN (13:23)
[2020-05-26] MEDS: Benzocaine/Menthol LOZ PO PRN (20:46)
[2020-05-27] MEDS ORDERED: Morphine 2 MG/ML SYRINGE IV ONE ×2 (02:21→20:51)
[2020-05-27 06:24] LABS: ABS Lymphocytes 1.3 10^3/ul (1.0-4.8); ABS Monocytes 0.6 10^3/ul (0-0.8); ABS Neutrophils 9.2 10^3/ul (1.5-7.7); Eosinophil % 0.4 %; Hematocrit 23 % (35-47); Hemoglobin 7.6 g/dL (12.0-16.0); Lymphocyte % 11.7 %; Mean Corpuscular HGB Conc 33 g/dL (31-36); Mean Corpuscular Hemoglobin 29 pg (27-31); Mean Corpuscular Volume 88 fL (80-97); Mean Platelet Volume 7.5 fL (7.4-10.4); Platelet Count 319 10^3/uL (150-450); Red Cell Distribution Width 15 % (10-15); White Blood Count 11.2 10^3/uL (3.5-10.8)
[2020-05-27] MEDS: ceFAZolin 2 GM PREMIX 2 GM/50 ML BAG IVPB SCH ×2 (08:04→16:16)
[2020-05-27] MEDS: Nicotine PATCH 21 MG/24 HR PATCH TRANSDERM SCH (08:08)
[2020-05-27] MEDS: Nystatin SUSPENSION 100,000 UNITS/ML UDC PO SCH ×5 (08:09→19:45)
[2020-05-27] MEDS: Benzocaine/Menthol LOZ PO PRN (08:39)
[2020-05-27] MEDS ORDERED: fentaNYL 100 mcg/2 ml 50 MCG/ML VIAL ONE (13:02)
[2020-05-27] MEDS ORDERED: Midazolam 2 mg/2 ml VIAL 1 mg/ml 2 ml VIAL (2 mg) ONE (13:02)
[2020-05-27] MEDS ORDERED: Rocuronium 50 mg VIAL 10 mg/ml 5 ml VIAL (50 mg) ONE (13:03)
[2020-05-28] MEDS: ceFAZolin 2 GM PREMIX 2 GM/50 ML BAG IVPB SCH ×4 (00:19→23:50)
[2020-05-28] MEDS: Nicotine PATCH 21 MG/24 HR PATCH TRANSDERM SCH (07:36)
[2020-05-28 15:42] LABS: Methylmalonic Acid 1.55 nmol/mL (<=0.40)
[2020-05-29 06:16] LABS: ABS Basophils 0.1 10^3/ul (0-0.2); ABS Lymphocytes 1.1 10^3/ul (1.0-4.8); ABS Monocytes 0.5 10^3/ul (0-0.8); ABS Neutrophils 7.1 10^3/ul (1.5-7.7); Eosinophil % 0.4 %; Hematocrit 22 % (35-47); Hemoglobin 7.3 g/dL (12.0-16.0); Lymphocyte % 12.4 %; Mean Corpuscular HGB Conc 34 g/dL (31-36); Mean Corpuscular Hemoglobin 30 pg (27-31); Mean Corpuscular Volume 87 fL (80-97); Mean Platelet Volume 6.7 fL (7.4-10.4); Platelet Count 397 10^3/uL (150-450); Red Blood Count 2.48 10^6 /uL (3.70-4.87); Red Cell Distribution Width 14 % (10-15); White Blood Count 8.8 10^3/uL (3.5-10.8)
[2020-05-29] MEDS: ceFAZolin 2 GM PREMIX 2 GM/50 ML BAG IVPB SCH ×2 (07:15→16:50)
[2020-05-29] MEDS: Nicotine PATCH 21 MG/24 HR PATCH TRANSDERM SCH (08:11)
[2020-05-29] MEDS: Enoxaparin 40 MG/0.4 ML SYR SUBCUT SCH (13:29)
[2020-05-29 13:33] LABS: BUN/Creatinine Ratio 21.8 (8-20); Calcium 7.6 mg/dL (8.6-10.3); EGFR African American 102.3 (>60); EGFR Non-African American 84.5 (>60); Magnesium 1.8 mg/dL (1.9-2.7)
[2020-05-29 13:40] LABS: Potassium 5.1 mmol/L (3.5-5.0)
[2020-05-29] MEDS: Buprenorphine 2 mg SL TAB SL SCH (19:17)
[2020-05-30] MEDS: ceFAZolin 2 GM PREMIX 2 GM/50 ML BAG IVPB SCH ×3 (00:09→16:25)
[2020-05-30 06:01] LABS: ABS Basophils 0.1 10^3/ul (0-0.2); ABS Lymphocytes 1.2 10^3/ul (1.0-4.8); ABS Monocytes 0.5 10^3/ul (0-0.8); ABS Neutrophils 6.1 10^3/ul (1.5-7.7); Eosinophil % 0.6 %; Hematocrit 22 % (35-47); Hemoglobin 7.6 g/dL (12.0-16.0); Lymphocyte % 14.6 %; Mean Corpuscular HGB Conc 34 g/dL (31-36); Mean Corpuscular Hemoglobin 29 pg (27-31); Mean Corpuscular Volume 86 fL (80-97); Mean Platelet Volume 6.6 fL (7.4-10.4); Platelet Count 385 10^3/uL (150-450); Red Blood Count 2.59 10^6 /uL (3.70-4.87); Red Cell Distribution Width 15 % (10-15); White Blood Count 7.9 10^3/uL (3.5-10.8)
[2020-05-30 06:48] LABS: CO2 Carbon Dioxide 28 mmol/L (22-32); Calcium 7.5 mg/dL (8.6-10.3); Chloride 101 mmol/L (101-111); Sodium 129 mmol/L (135-145)
[2020-05-30 06:54] LABS: BUN/Creatinine Ratio 22.9 (8-20); Blood Urea Nitrogen 16 mg/dL (6-24); EGFR African American 115.9 (>60); EGFR Non-African American 95.8 (>60); Glucose 82 mg/dL (70-100)
[2020-05-30 07:46] LABS: Potassium 5.2 mmol/L (3.5-5.0)
[2020-05-30] MEDS: Buprenorphine 2 mg SL TAB SL SCH ×2 (08:16→19:37)
[2020-05-30] MEDS: Nicotine PATCH 21 MG/24 HR PATCH TRANSDERM SCH (08:18)
[2020-05-30] MEDS: Sodium Polystyrene ORAL.SUSP 15 GM/60 ML BTL PO SCH ×3 (10:00→19:38)
[2020-05-30 10:37] LABS: ABS Basophils 0.1 10^3/ul (0-0.2); ABS Monocytes 0.5 10^3/ul (0-0.8); ABS Neutrophils 5.9 10^3/ul (1.5-7.7); Eosinophil % 0.5 %; Hematocrit 23 % (35-47); Hemoglobin 7.9 g/dL (12.0-16.0); Lymphocyte % 12.9 %; Mean Corpuscular HGB Conc 34 g/dL (31-36); Mean Corpuscular Hemoglobin 29 pg (27-31); Mean Corpuscular Volume 86 fL (80-97); Mean Platelet Volume 6.7 fL (7.4-10.4); Platelet Count 428 10^3/uL (150-450); Red Blood Count 2.71 10^6 /uL (3.70-4.87); Red Cell Distribution Width 15 % (10-15); White Blood Count 7.5 10^3/uL (3.5-10.8)
[2020-05-30 10:54] LABS: Albumin 1.8 g/dL (3.2-5.2); Albumin/Globulin Ratio 0.3 (1-3); BUN/Creatinine Ratio 20.8 (8-20); Calcium 7.9 mg/dL (8.6-10.3); EGFR African American 112.2 (>60); EGFR Non-African American 92.7 (>60); Globulin 5.5 g/dL (2-4); Indirect Bilirubin 0.3 mg/dL (0.3-1.0); Magnesium 1.6 mg/dL (1.9-2.7); Potassium 4.8 mmol/L (3.5-5.0); Total Bilirubin 0.4 mg/dL (0.2-1.0); Total Protein 7.3 g/dL (6.4-8.9)
[2020-05-30] MEDS: RIFAMPIN IVPB SCH (13:47)
[2020-05-30] MEDS: Enoxaparin 40 MG/0.4 ML SYR SUBCUT SCH (13:47)
[2020-05-30] MEDS: NS 0.9% IVPB SCH (13:47)
[2020-05-30] MEDS ORDERED: LORazepam 2 mg VIAL 1 ml IV PUSH ONE (14:37)
[2020-05-30] MEDS ORDERED: Lorazepam PYXIS KEY PRN (14:37)
[2020-05-31] MEDS: ceFAZolin 2 GM PREMIX 2 GM/50 ML BAG IVPB SCH ×4 (00:29→23:44)
[2020-05-31] MEDS: Sodium Polystyrene ORAL.SUSP 15 GM/60 ML BTL PO SCH ×3 (03:21→16:59)
[2020-05-31] MEDS: Buprenorphine 2 mg SL TAB SL SCH ×2 (09:02→20:11)
[2020-05-31] MEDS: Nicotine PATCH 21 MG/24 HR PATCH TRANSDERM SCH (09:04)
[2020-05-31] MEDS: NS 0.9% IVPB SCH (12:25)
[2020-05-31] MEDS: RIFAMPIN IVPB SCH (12:25)
[2020-05-31] MEDS: Enoxaparin 40 MG/0.4 ML SYR SUBCUT SCH (14:25)
[2020-05-31] MEDS: Buprenorphine 2 mg SL TAB PO SCH (16:46)
[2020-05-31] MEDS: Benzocaine/Menthol LOZ PO PRN (18:37)
[2020-05-31 18:58] LABS: ABS Basophils 0.1 10^3/ul (0-0.2); ABS Lymphocytes 1.1 10^3/ul (1.0-4.8); ABS Monocytes 0.6 10^3/ul (0-0.8); ABS Neutrophils 5.7 10^3/ul (1.5-7.7); Eosinophil % 0.5 %; Hematocrit 23 % (35-47); Lymphocyte % 14.2 %; Mean Corpuscular HGB Conc 35 g/dL (31-36); Mean Corpuscular Hemoglobin 30 pg (27-31); Mean Corpuscular Volume 86 fL (80-97); Mean Platelet Volume 6.7 fL (7.4-10.4); Platelet Count 471 10^3/uL (150-450); Red Blood Count 2.62 10^6 /uL (3.70-4.87); Red Cell Distribution Width 15 % (10-15); White Blood Count 7.5 10^3/uL (3.5-10.8)
[2020-05-31 19:15] LABS: Calcium 7.9 mg/dL (8.6-10.3); EGFR African American 141.2 (>60); EGFR Non-African American 116.7 (>60); Potassium 4.1 mmol/L (3.5-5.0)
[2020-06-01 04:08] LABS: ABS Lymphocytes 1.2 10^3/ul (1.0-4.8); ABS Monocytes 0.5 10^3/ul (0-0.8); ABS Neutrophils 5.5 10^3/ul (1.5-7.7); Eosinophil % 0.5 %; Hematocrit 21 % (35-47); Hemoglobin 7.5 g/dL (12.0-16.0); Lymphocyte % 16.6 %; Mean Corpuscular HGB Conc 35 g/dL (31-36); Mean Corpuscular Hemoglobin 31 pg (27-31); Mean Corpuscular Volume 86 fL (80-97); Mean Platelet Volume 6.7 fL (7.4-10.4); Platelet Count 456 10^3/uL (150-450); Red Blood Count 2.47 10^6 /uL (3.70-4.87); Red Cell Distribution Width 15 % (10-15); White Blood Count 7.3 10^3/uL (3.5-10.8)
[2020-06-01 04:25] LABS: BUN/Creatinine Ratio 18.9 (8-20); Calcium 7.8 mg/dL (8.6-10.3); EGFR African American 159.8 (>60); EGFR Non-African American 132.1 (>60); Potassium 4.1 mmol/L (3.5-5.0)
[2020-06-01 04:47] LABS: Magnesium 1.4 mg/dL (1.9-2.7)
[2020-06-01] MEDS ORDERED: Magnesium Sulf 4 GM/100 ML IV 4,000 MG/100 ML BAG IVPB ONE (07:50)
[2020-06-01] MEDS: Nicotine PATCH 21 MG/24 HR PATCH TRANSDERM SCH (07:58)
[2020-06-01] MEDS: Buprenorphine 2 mg SL TAB PO SCH (08:00)
[2020-06-01] MEDS: Buprenorphine 2 mg SL TAB SL SCH ×2 (08:00→19:24)
[2020-06-01] MEDS: ceFAZolin 2 GM PREMIX 2 GM/50 ML BAG IVPB SCH ×3 (08:02→23:01)
[2020-06-01] MEDS: Enoxaparin 40 MG/0.4 ML SYR SUBCUT SCH (12:18)
[2020-06-01 12:54] LABS: Hematocrit 22 % (35-47); Hemoglobin 7.3 g/dL (12.0-16.0)
[2020-06-01] MEDS: RIFAMPIN IVPB SCH (12:56)
[2020-06-01] MEDS: NS 0.9% IVPB SCH (12:56)
[2020-06-01 20:52] LABS: Hematocrit 22 % (35-47); Hemoglobin 7.4 g/dL (12.0-16.0)
[2020-06-01] MEDS: Benzocaine/Menthol LOZ PO PRN (23:00)
[2020-06-02 04:36] LABS: ABS Lymphocytes 1.1 10^3/ul (1.0-4.8); ABS Monocytes 0.5 10^3/ul (0-0.8); Eosinophil % 0.4 %; Hematocrit 23 % (35-47); Hemoglobin 7.8 g/dL (12.0-16.0); Lymphocyte % 14.4 %; Mean Corpuscular HGB Conc 35 g/dL (31-36); Mean Corpuscular Hemoglobin 30 pg (27-31); Mean Corpuscular Volume 86 fL (80-97); Mean Platelet Volume 6.7 fL (7.4-10.4); Platelet Count 509 10^3/uL (150-450); Red Blood Count 2.65 10^6 /uL (3.70-4.87); Red Cell Distribution Width 15 % (10-15); White Blood Count 7.7 10^3/uL (3.5-10.8)
[2020-06-02] MEDS ORDERED: Magnesium Sulfate 2 gm BAG 2 GM/50 ML BAG IVPB ONE (07:52)
[2020-06-02] MEDS: Nicotine PATCH 21 MG/24 HR PATCH TRANSDERM SCH (08:12)
[2020-06-02] MEDS: Buprenorphine 2 mg SL TAB SL SCH ×2 (08:12→19:35)
[2020-06-02] MEDS: Buprenorphine 2 mg SL TAB PO SCH (08:13)
[2020-06-02] MEDS: ceFAZolin 2 GM PREMIX 2 GM/50 ML BAG IVPB SCH ×2 (08:14→17:27)
[2020-06-02] MEDS: RIFAMPIN IVPB SCH (13:13)
[2020-06-02] MEDS: NS 0.9% IVPB SCH (13:13)
[2020-06-02 14:52] LABS: Body Fluid Source Pleural Fluid
[2020-06-02 18:52] LABS: Body Fluid Mono 9 %
[2020-06-02] MEDS: Benzocaine/Menthol LOZ PO PRN (19:36)
[2020-06-03] MEDS: ceFAZolin 2 GM PREMIX 2 GM/50 ML BAG IVPB SCH ×2 (00:55→08:29)
[2020-06-03 05:47] LABS: ABS Eosinophils 0.1 10^3/ul (0-0.6); ABS Lymphocytes 1.2 10^3/ul (1.0-4.8); ABS Monocytes 0.4 10^3/ul (0-0.8); ABS Neutrophils 4.5 10^3/ul (1.5-7.7); Eosinophil % 0.9 %; Hematocrit 21 % (35-47); Hemoglobin 7.4 g/dL (12.0-16.0); Lymphocyte % 19.8 %; Mean Corpuscular HGB Conc 35 g/dL (31-36); Mean Corpuscular Hemoglobin 30 pg (27-31); Mean Corpuscular Volume 86 fL (80-97); Mean Platelet Volume 6.3 fL (7.4-10.4); Platelet Count 456 10^3/uL (150-450); Red Blood Count 2.48 10^6 /uL (3.70-4.87); Red Cell Distribution Width 15 % (10-15); White Blood Count 6.3 10^3/uL (3.5-10.8)
[2020-06-03 06:31] VITALS: BP 152/84
[2020-06-03] MEDS ORDERED: Magnesium Sulfate IV 3 GM in NS 0.9% 100 ml BAG 100 ML IVPB ONE (07:07)
[2020-06-03] MEDS: Buprenorphine 2 mg SL TAB PO SCH (08:27)
[2020-06-03] MEDS: Nicotine PATCH 21 MG/24 HR PATCH TRANSDERM SCH (08:30)
[2020-06-03] MEDS: Buprenorphine 2 mg SL TAB SL SCH (09:10)
[2020-06-05 11:58] LABS: Fluid Type, Glucose PLEURAL; Glucose, BF 68 mg/dL
[2020-06-05 12:02] LABS: Fluid Type, Protein, Total PLEURAL
== END 2020-06-03 10:35 | disposition left against medical advice (07) | DRG 193 ==
LOC: ED 12:09 → ICU 18:27 → MEDTELE 05-22 15:38 → MED 06-02 05:20
PROVIDERS: ADMIT Internal Medicine; ATTEND Internal Medicine